=== PATIENT | male | born 1935 | race Caucasian/White ===

== ENCOUNTER 2016-06-17 10:32 | Outpatient (RCR) | payer MEDICAID ==
[~2016-06-17 10:32] MED LIST: AC325T PO; ACDPT; ACET-2303; ACET325T49 PO; ACID1TAB5 PO; AMLO5TAB2 PO; ANTIBIOTIC; ASP81TEC; ASP81TEC PO; ASPI-999 PO; ATEN25TA PO; ATN25T; ATOR10TA PO; BENZ1LOZ61 PO; C250T PO; CEFU500T PO; CEFU500T5; CEPH-38 PO; CLOP75TA28 PO; CLOT15CR4 TP; CLTR1C90; CYAN100053 IM; CYCL10TA9; DCS100C; DCS100C PO; DICY20TA57 PO; DIPH25TA82 PO; ESCT10T PO; FENO135C PO; FNST5T PO; FURO40TA4 PO; HYDR-3583 PO; HYDR-3714 PO; HYDR-3812 PO; HYDR1CAP2; HYDR30CR69 RC; KCL10CCR PO; LACT20SO2 PO; LAXATIVE; LEVO500T2 PO; LISI2.5T PO; LNS30CCR; LTRS15C TOP; MAG30ORA2 PO; MAGN400O7 PO; METO-333 PO; METO10TA3; METR500T PO; MPR22TI; MTF500T PO; MULT-608 PO; NAPH15DR51 OU; NAPR375T2; NITR0.4T SL; OMEG1CAP74 PO; OMEP-10 PO; OMEP40CA36 PO; PANT40SU PO; PHEN118S12 PO; PHEN26CR RC; PNT40TEC; POLY17PO23 PO; POTA20LI PO; POTA20TA15 PO; PRD10T PO; PROP1TAB2; PROP1TAB77; RNT150T PO; SCR1T PO; SCR1T1 PO; SHAR1SUP RC; SIMV20TA3 PO; SMV20T; SNN187T PO; SULF1TAB23; SULF1TAB23 PO; SULF1TAB38 PO; SULF1TAB7; TMSL.4C PO; TR1O15; TRAM50TA2 PO; TRZ50T PO; ZLP10T; [UNRECOGNIZED DRUG - OTHER]; [UNRECOGNIZED DRUG - OTHER]; [UNRECOGNIZED DRUG - OTHER]; [UNRECOGNIZED DRUG - OTHER] OU
== END 2016-09-15 | disposition home or self-care (01) ==
LOC: CARD 10:32
PROVIDERS: ATTEND Internal Medicine Interventional Cardiology
DX: R06.00 Dyspnea, unspecified (principal); I49.3 Ventricular premature depolarization
CPT/HCPCS: 93225; 93226

== ENCOUNTER → 2016-08-06 | Outpatient (CLI) | payer MEDICAID ==
[~2016-08-06] VITALS: Ht 152.4 cm; Wt 73.5 kg
[~2016-08-06] MED LIST changes: +REGADENOSON 0.4 MG/5 ML SYR (LEXISCAN) IV ONE
[2016-08-06] MEDS: CATHETER FLUSH 10 ML SYR IV PRN ×2 (08:06→09:40)
[2016-08-06 09:37] VITALS: BP 129/59
--- NOTE | 2016-08-07 09:39 | STRESS TEST ---
PROCEDURE PHYSICIAN: GRANT BANDA DATE OF PROCEDURE: 08/06/2016 RESTING AND POST REGADENOSON TECHNETIUM 99M TETROFOSMIN SPECT CT IMAGING: ORDERING PHYSICIAN: Dr. Banda. PRIMARY PHYSICIAN: Dr. Manriquez CLINICAL DIAGNOSIS: 1. Coronary artery disease. 2. Shortness of breath. Baseline images were carried out after injection of 10.78 mCi technetium 99m tetrofosmin. This was followed by 0.4 mg of regadenoson and 30.6 mCi of technetium 99m tetrofosmin for stress images. The electrocardiogram showed sinus rhythm with first degree AV block with frequent premature atrial contractions and premature ventricular contractions. The electrocardiogram did not change significantly with regadenoson infusion. Review of images at rest and following stress indicates a small to moderate anteroapical perfusion defect which is predominantly transient. Gated images show normal global left ventricular systolic function with normal regional wall motion. Left ventricular ejection fraction is calculated to be 62%. Left ventricular end diastolic function is 64 mL. TID is absent (0.97). CONCLUSIONS: 1. This study suggests a small to moderate amount of anteroapical ischemia. 2. Normal global left ventricular systolic function with an ejection fraction of 62%. 3. Normal regional wall motion. 4. The electrocardiogram is indicative of sinus node dysfunction. Job ID: [id number] Dictated Date: 08/06/2016 16:42:38 Veterinary Microbiologist Date: 08/07/2016 09:31:40 / john
== END ==
LOC: CARD 07:49
PROVIDERS: ATTEND Internal Medicine Cardiovascular Disease
DX: I25.10 Atherosclerotic heart disease of native coronary artery without angina pectoris (principal); R07.89 Other chest pain; R06.02 Shortness of breath; I49.9 Cardiac arrhythmia, unspecified; I73.89 Other specified peripheral vascular diseases; I65.23 Occlusion and stenosis of bilateral carotid arteries
CPT/HCPCS: 78452; 93017

== ENCOUNTER → 2016-08-08 | Outpatient (CLI) | payer MEDICAID ==
[~2016-08-08] MED LIST changes: -REGADENOSON 0.4 MG/5 ML SYR (LEXISCAN) IV ONE
--- NOTE | 2016-08-08 16:11 | Diagnostic Imaging Report ---
PROCEDURE: US Carotid Duplex Bilateral. TECHNIQUE: Multiple real-time grayscale images were obtained over the carotid arteries in various projections bilaterally. Additional duplex Doppler and color Doppler images were also obtained. INDICATION: Atherosclerotic disease. FINDINGS: The bilateral common, internal, and external carotid peak systolic velocities were normal. The ICA/CCA percent ratios are normal. There is normal color laminar Doppler flow throughout both common and internal carotids. The vertebral flow in the antegrade direction bilaterally. Minimal intimal thickening and scattered plaques did not form substantial stenoses. IMPRESSION: Minimal degree of atherosclerotic plaque formed no hemodynamically significant stenosis and resulted in no appreciable branch occlusion. Dictated by: Dictated on workstation # [id number]
== END ==
LOC: RAD 11:19
PROVIDERS: ATTEND Internal Medicine Cardiovascular Disease
DX: I25.10 Atherosclerotic heart disease of native coronary artery without angina pectoris (principal); R06.02 Shortness of breath; R07.89 Other chest pain; I49.9 Cardiac arrhythmia, unspecified; I73.89 Other specified peripheral vascular diseases; I65.23 Occlusion and stenosis of bilateral carotid arteries
CPT/HCPCS: 93880

== ENCOUNTER 2016-12-29 02:55 | Observation (INO) | payer MEDICAID ==
[~2016-12-29] VITALS: Ht 152.4 cm; Wt 69.0 kg
[2016-12-29] MEDS ORDERED: ASPIRIN 81 MG CHEW (CHILDREN'S ASA) PO ONE (03:15)
[2016-12-29] MEDS ORDERED: morphine INJ 10 MG/ML 1ML (SYR OR VIAL) IVP STA (03:25)
[2016-12-29 03:27] LABS: BASOPHILS % (AUTO) 1 % (0-10); EOSINOPHILS # (AUTO) 0.3 10^3/uL (0.0-0.3); EOSINOPHILS % (AUTO) 4 % (0-10); LYMPHOCYTES # (AUTO) 1.7 X 10^3 (1.0-4.0); LYMPHOCYTES % (AUTO) 22 % (12-44); MEAN CORPUSCULAR HEMOGLOBIN 31 PG (25-34); MEAN CORPUSCULAR HGB CONC 33 G/DL (32-36); MEAN CORPUSCULAR VOLUME 94 FL (80-99); MEAN PLATELET VOLUME 10.7 FL (7.4-10.4); MONOCYTES # (AUTO) 1.1 X 10^3 (0.0-1.0); MONOCYTES % (AUTO) 14 % (0-12); NEUTROPHILS # (AUTO) 4.6 X 10^3 (1.8-7.8); NEUTROPHILS % (AUTO) 59 % (42-75); PLATELET COUNT 189 10^3/uL (130-400); RED BLOOD COUNT 3.86 10^6/uL (4.35-5.85); WHITE BLOOD COUNT 7.7 10^3/uL (4.3-11.0)
--- NOTE | 2016-12-29 03:27 | ED Chest Pain ---
General Chief Complaint: Chest Pain Stated Complaint: SOA CHEST PAIN Nursing Triage Note: PT TO ED 7 PER EMS FOR C/O CP, SOB ONSET THIS AM. PT REPORTS PAIN WOKE HIM FROM SLEEP THIS AM. NO OTHER C/O VOICED Nursing Sepsis Screen: No Definite Risk Source: patient, EMS Exam Limitations: no limitations History of Present Illness Time seen by provider: 03:15 Initial Comments Here with report of left-sided chest pain that radiates to his back that he reports is aching and moderate in intensity. This woke him up from sleep approximately 45 minutes ago. EMS was summoned and they did give nitroglycerin. This did lower his blood pressure but did not resolve the pain. Denies nausea, vomiting or sweating. She does have cerebral palsy. He has had 2 previous heart attacks. Timing/Duration: 1 hour Severity/Quality: moderate Location: central Radiation: back Activities at Onset: none Prior CP/Workup: cardiac cath, echocardiography, heart attack, stress test ASA po MACHINE TURNER: No NTG SL MACHINE TURNER: Yes Associated Symptoms: back pain, No diaphoresis, No fever/chills, No shortness of breath, No weakness Allergies and Home Medications Allergies Coded Allergies: Penicillins (Verified Allergy, Unknown, 12/11/05) sulfamethoxazole (Unverified Allergy, Unknown, 03/23/15) trimethoprim (Unverified Allergy, Unknown, 03/23/15) Home Medications Acetaminophen 325 Mg Tab, 650 MG PO Q4H PRN for MILD PAIN, (Reported) Aspirin 81 Mg Tab.chew, 81 MG PO DAILY, #90 Ref 3 Prescribed by: GWENDOLYN ROMERO on 03/31/15840 Atorvastatin Calcium 10 Mg Tablet, 10 MG PO HS, (Reported) Benzocaine/Menthol 1 Each Lozenge, 1 DONY PO EVERY 3 HOURS PRN for COUGH, ( Reported) Cefuroxime Axetil 500 Mg Tablet, 500 MG PO BID for 5 Days, (Reported) 5 DAY THERAPY START DATE 03-28-15 Clopidogrel Bisulfate 75 Mg Tablet, 75 MG PO DAILY, #90 Ref 3 Prescribed by: GWENDOLYN ROMERO on 03/31/1541 Clotrimazole/Betamethasone Dip 15 Gm Cream..g., TP TID, (Reported) Cyanocobalamin 1,000 Mcg/Ml Vial, 1,000 MCG IM 1ST OF MONTH, (Reported) Docusate Sodium 100 Mg Capsule, 100 MG PO BID, (Reported) Fenofibric Acid (Choline) 135 Mg Capsule.dr, 135 MG PO HS, (Reported) Finasteride 5 Mg Tab, 5 MG PO DAILY, (Reported) Furosemide 40 Mg Tablet, 40 MG PO AM & NOON, (Reported) Hydrocodone/Acetaminophen 1 Each Tablet, 1 TAB PO Q8H PRN for MODERATE PAIN, ( Reported) Hydrocortisone 30 Gm Cream.gm., 1 APPLIC RC DAILY PRN for CONSTIPATION, ( Reported) Levofloxacin 500 Mg Tablet, 500 MG PO DAILY for 5 Days, (Reported) 5 DAY THERAPY START DATE 03-28-15 Lisinopril 2.5 Mg Tablet, 2.5 MG PO DAILY, #90 Ref 3 Prescribed by: GWENDOLYN ROMERO on 03/31/1541 Mag Hydrox/Al Hydrox/Simeth 30 Ml Oral.susp, 30 ML PO EVERY 1 HOUR PRN for INDIGESTION, (Reported) Magnesium Hydroxide 30 Ml Oral.susp, 30 ML PO DAILY PRN for CONSTIPATION, ( Reported) Metformin Hcl 500 Mg Tablet, 1,000 MG PO BID, (Reported) TAKES 2 (500MG) TABLETS Metoprolol Tartrate 25 Mg Tablet, 12.5 MG PO BID, #90 Ref 3 Prescribed by: GWENDOLYN ROMERO on 03/31/1541 Naphazoline HCl/Pheniramine 15 Ml Drops, 1 DROP OU HS, (Reported) Nitroglycerin 0.4 Mg Tab.subl, 0.4 MG SL UD PRN for CHEST PAIN, (Reported) Davis-3/Dha/Epa/Fish Oil 1,000 Mg Capsule, 1,000 MG PO BID, (Reported) Pantoprazole Sodium 40 Mg Granpkt.dr, 40 MG PO DAILY, #90 Ref 3 Prescribed by: GWENDOLYN ROMERO on 03/31/1542 Phenyleph/Pramoxin/Glycr/W.pet 26 Gm Cream..g., 1 MG RC HS, (Reported) Potassium Chloride 20 Meq/15 Ml Liquid, 15 ML PO DAILY, (Reported) MIX IN 8OZ WATER Prednisone 10 Mg Tab, 10 MG PO DAILY, (Reported) START DATE 03-26-15 END DATE 04-10-15 Senna 8.6 Mg Tab, 8.6 MG PO BID, (Reported) Shark Liver Oil/[place] Butter 1 Each Supp.rect, 1 SUPP.RECT RC Q8H PRN for HEMORRHOIDS, (Reported) Tamsulosin Hcl 0.4 Mg Cap.er.24h, 0.4 MG PO HS, (Reported) Review of Systems Constitutional: see HPI, No chills, No fever EENTM: No Symptoms Reported Respiratory: No Symptoms Reported Cardiovascular: See HPI, Chest Pain, Denies Edema, Irregular Heart Rate Gastrointestinal: Denies Abdominal Pain, Denies Nausea, Denies Vomiting Genitourinary: No Symptoms Reported Musculoskeletal: no symptoms reported All Other Systems Reviewed Negative Unless Noted: Yes Past Cvhywdq-Aqlzli-Epyrcy Hx Patient Social History Alcohol Use: Denies Use Recreational Drug Use: No Smoking Status: Never a Smoker Former Smoker/When Quit: Jun 30, 1971 Recent Foreign Travel: No Contact w/Someone Who Travel: No Recent Infectious Disease Expo: No Recent Hopitalizations: No Immunizations Up To Date Tetanus Booster (TDap): Unknown PED Vaccines UTD: No Date of Pneumonia Vaccine: Oct 03, 2014 Seasonal Allergies Seasonal Allergies: No Surgeries HX Surgeries: Yes (KNEES, LEGS, FEET AND ABDOMINAL SURGERY) Surgeries: Orthopedic Respiratory Hx Respiratory Disorders: Yes (SHORTNESS OF BREATH AT TIMES, SLEEP APNEA- WEARS C-PAP) Respiratory Disorders: Sleep Apnea Cardiovascular Hx Cardiac Disorders: Yes Cardiac Disorders: Chronic Edema/Swelling, Coronary Artery Disease, Heart Attack, High Cholesterol, Hypertension Neurological Hx Neurological Disorders: Yes Neurological Disorders: Cerebral Palsy Reproductive System Hx Reproductive Disorders: No Genitourinary Hx Genitourinary Disorders: Yes Genitourinary Disorders: Benign Prostatic Hyperpl, Bladder Infection Gastrointestinal Hx Gastrointestinal Disorders: Yes (COLON RESECTION) Gastrointestinal Disorders: Gastroesophageal Reflux, Chronic Constipation, Hemorrhoids Musculoskeletal Hx Musculoskeletal Disorders: Yes (CEREBRAL PALSY, GENERALIZED PAIN ) Musculoskeletal Disorders: Contracture Endocrine Hx Endocrine Disorders: Yes Endocrine Disorders: Diabetes, Non-Insulin dep HEENT HX ENT Disorders: Yes Loss of Vision: Denies Hearing Impairment: Hard of Hearing Cancer Hx Cancer: Yes Cancer: Colon Psychosocial Hx Psychiatric Problems: Yes Behavioral Health Disorders: Sleep Difficulties, Depression Integumentary HX Skin/Integumentary Disorder: No Blood Transfusions Hx Blood Disorders: No Reviewed Nursing Assessment Reviewed/Agree w Nursing PMH: Yes Family Medical History Significant Family History: No Pertinent Family Hx Family Medial History: Patient reports no known family medical history. Physical Exam Vital Signs Vital Sign - Last 12Hours 12/29/16 02:56 Temp 98.2 Pulse 55 Resp 20 B/P (MAP) 88/48 Pulse Ox 92 Capillary Refill : Less Than 3 Seconds General Appearance: No Apparent Distress, WD/WN HEENT: PERRL/EOMI, Pharynx Normal Neck: Non Tender, Supple Respiratory: Lungs Clear, Normal Breath Sounds Cardiovascular: No Murmur, Irregularly Irregular Gastrointestinal: Non Tender, Soft Extremity: Other (contractures bilateral lower extremities chronic. No obvious swelling.) Neurologic/Psychiatric: Alert, Oriented x3 Skin: Normal Color, Warm/Dry Progress/Results/Core Measures Results/Orders Lab Results Laboratory Tests Test 12/29/16 03:16 Range/Units White Blood Count 7.7 4.3-11.0 10^3/uL Red Blood Count 3.86 L 4.35-5.85 10^6/uL Hemoglobin 11.9 L 13.3-17.7 G/DL Hematocrit 36 L 40-54 % Mean Corpuscular Volume 94 80-99 FL Mean Corpuscular Hemoglobin 31 25-34 PG Mean Corpuscular Hemoglobin Concent 33 32-36 G/DL Red Cell Distribution Width 14.0 10.0-14.5 % Platelet Count 189 130-400 10^3/uL Mean Platelet Volume 10.7 H 7.4-10.4 FL Neutrophils (%) (Auto) 59 42-75 % Lymphocytes (%) (Auto) 22 12-44 % Monocytes (%) (Auto) 14 H 0-12 % Eosinophils (%) (Auto) 4 0-10 % Basophils (%) (Auto) 1 0-10 % Neutrophils # (Auto) 4.6 1.8-7.8 X 10^3 Lymphocytes # (Auto) 1.7 1.0-4.0 X 10^3 Monocytes # (Auto) 1.1 H 0.0-1.0 X 10^3 Eosinophils # (Auto) 0.3 0.0-0.3 10^3/uL Basophils # (Auto) 0.0 0.0-0.1 10^3/uL Prothrombin Time 12.8 12.2-14.7 SEC INR Comment 1.0 0.8-1.4 Activated Partial Thromboplast Time 31 24-35 SEC Sodium Level 140 135-145 MMOL/L Potassium Level 4.4 3.6-5.0 MMOL/L Chloride Level 107 98-107 MMOL/L Carbon Dioxide Level 22 21-32 MMOL/L Anion Gap 11 5-14 MMOL/L Blood Urea Nitrogen 30 H 7-18 MG/DL Creatinine 0.84 0.60-1.30 MG/DL Estimat Glomerular Filtration Rate > 60 BUN/Creatinine Ratio 36 Glucose Level 123 H 70-105 MG/DL Calcium Level 9.6 8.5-10.1 MG/DL Magnesium Level 2.4 1.8-2.4 MG/DL Total Bilirubin 0.3 0.1-1.0 MG/DL Aspartate Amino Transf (AST/SGOT) 26 5-34 U/L Alanine Aminotransferase (ALT/SGPT) 20 0-55 U/L Alkaline Phosphatase 35 L 40-136 U/L Myoglobin 41.0 10.0-92.0 NG/ML Troponin I < 0.30 <0.30 NG/ML B-Type Natriuretic Peptide 247.8 H <100.0 PG/ML Total Protein 6.9 6.4-8.2 GM/DL Albumin 3.7 3.2-4.5 GM/DL My Orders Orders - JELENA BROWN MD Cbc With Automated Diff (12/29/16 03:05) Magnesium (12/29/16 03:05) Chest 1 View, Ap/Pa Only (12/29/16 03:05) Ekg Tracing (12/29/16 03:05) Cardiac Profile 1 (12/29/16 03:05) Comprehensive Metabolic Panel (12/29/16 03:05) Myoglobin Serum (12/29/16 03:05) Protime With Inr (12/29/16 03:05) Partial Thromboplastin Time (12/29/16 03:05) O2 (12/29/16 03:05) Monitor-Rhythm Ecg Trace Only (12/29/16 03:05) Lipid Panel (12/30/16 06:00) Aspirin Chewable Tablet (Baby Aspirin Ch (12/29/16 03:15) Saline Lock/Iv-Start (12/29/16 03:05) BNP (12/29/16 03:05) Morphine Injection (Morphine Injection (12/29/16 03:25) Lidocaine 2% Viscous 15 Ml (Xylocaine Vi (12/29/16 04:30) Antacid Suspension (Mylanta Suspension (12/29/16 04:30) Medications Given in ED Current Medications Medications Dose Ordered Sig/Carlos Route Start Time Stop Time Status Last Admin Dose Admin Aspirin 324 mg ONCE ONCE PO 12/29/16 03:15 12/29/16 03:16 DC 12/29/16 03:29 324 MG Vital Signs/I&O Vital Sign - Last 12Hours 12/29/16 12/29/16 12/29/16 02:56 02:56 02:56 Temp 98.2 Pulse 55 Resp 20 B/P (MAP) 88/48 Pulse Ox 92 O2 Delivery Nasal Cannula Nasal Cannula Nasal Cannula O2 Flow Rate 3.00 3.0 Blood Pressure Mean: 61 Progress Note : Progress Note Seen and evaluated. IV by EMS. Labs, aspirin, EKG and chest x-ray ordered. Morphine 2 mg IV. Monitor patient. 0413: Discussed case with Dr. Tello, on- call for Dr. Sandoval. Due to patient's significant medical history, patient will be admitted observation for further rule out of his chest pain. GI cocktail given. Pain is improved after morphine. Admit, observation status. Patient agrees with plan. ECG Initial ECG Impression Date: Dec 29, 2016 Initial ECG Impression Time: 03:05 Initial ECG Rate: 71 Initial ECG Rhythm: A Fib/Flutter Comment Atrial fibrillation with ventricular trigeminy. Nonspecific intraventricular conduction delay. Strain right axis deviation. Similar to previous of . No evidence of ST elevation ME. Interpreted by me. Diagnostic Imaging Diagonstic Imaging: Xray Plain Films/CT/US/NM/MRI: chest Comments Rotated with chronic lung disease. Similar to previous. Departure Communication Time/Spoke to Admitting Phy: 04:13 Impression Impression: Primary Impression: Chest pain Qualified Codes: R07.9 - Chest pain, unspecified Disposition: 09 ADMITTED INPATIENT Condition: Stable Decision to Admit Reason: Admit from ER (General) Decision to Admit/Date: Dec 29, 2016 Time/Decision to Admit Time: 04:13 Departure-Patient Inst. Referrals: MELANIE SANDOVAL DO (PCP/Family) Primary Care Physician JELENA BROWN MD Dec 29, 2016 03:27
[2016-12-29 03:44] LABS: ALANINE AMINOTRANSFERASE 20 U/L (0-55); ALBUMIN 3.7 GM/DL (3.2-4.5); ANION GAP 11 MMOL/L (5-14); ASPARTATE AMINO TRANSFERASE 26 U/L (5-34); BILIRUBIN,TOTAL 0.3 MG/DL (0.1-1.0); BLOOD UREA NITROGEN 30 MG/DL (7-18); BUN/CREATININE RATIO 36; CALCIUM 9.6 MG/DL (8.5-10.1); CARBON DIOXIDE 22 MMOL/L (21-32); CHLORIDE 107 MMOL/L (98-107); CREATININE SERUM 0.84 MG/DL (0.60-1.30); GFR ESTIMATED > 60; GLUCOSE 123 MG/DL (70-105); MAGNESIUM 2.4 MG/DL (1.8-2.4); POTASSIUM 4.4 MMOL/L (3.6-5.0); SODIUM 140 MMOL/L (135-145); TOTAL PROTEIN 6.9 GM/DL (6.4-8.2)
[2016-12-29 03:46] LABS: PROTHROMBIN TIME PATIENT 12.8 SEC (12.2-14.7)
[2016-12-29] MEDS ORDERED: LIDOCAINE 2% VISCOUS 15 ML UDC PO ONE (04:30)
[2016-12-29] MEDS ORDERED: ANTACID SUSP 30 ML UDC (MYLANTA) PO ONE (04:30)
[2016-12-29 05:52] VITALS: BP 109/53
[2016-12-29] MEDS ORDERED: NS IV 1000 ML 1,000 ML ONE (06:24)
[2016-12-29 06:34] LABS: BASOPHILS % (AUTO) 1 % (0-10); EOSINOPHILS # (AUTO) 0.2 10^3/uL (0.0-0.3); EOSINOPHILS % (AUTO) 3 % (0-10); LYMPHOCYTES # (AUTO) 1.4 X 10^3 (1.0-4.0); LYMPHOCYTES % (AUTO) 18 % (12-44); MEAN CORPUSCULAR HEMOGLOBIN 31 PG (25-34); MEAN CORPUSCULAR HGB CONC 33 G/DL (32-36); MEAN CORPUSCULAR VOLUME 94 FL (80-99); MEAN PLATELET VOLUME 10.7 FL (7.4-10.4); MONOCYTES # (AUTO) 0.8 X 10^3 (0.0-1.0); MONOCYTES % (AUTO) 10 % (0-12); NEUTROPHILS # (AUTO) 5.4 X 10^3 (1.8-7.8); NEUTROPHILS % (AUTO) 69 % (42-75); PLATELET COUNT 173 10^3/uL (130-400); WHITE BLOOD COUNT 7.9 10^3/uL (4.3-11.0)
[2016-12-29 06:57] LABS: ALANINE AMINOTRANSFERASE 20 U/L (0-55); ALBUMIN 3.8 GM/DL (3.2-4.5); ANION GAP 10 MMOL/L (5-14); ASPARTATE AMINO TRANSFERASE 26 U/L (5-34); BILIRUBIN,TOTAL 0.3 MG/DL (0.1-1.0); BLOOD UREA NITROGEN 29 MG/DL (7-18); BUN/CREATININE RATIO 34; CALCIUM 9.7 MG/DL (8.5-10.1); CARBON DIOXIDE 22 MMOL/L (21-32); CHLORIDE 108 MMOL/L (98-107); CREATININE SERUM 0.86 MG/DL (0.60-1.30); GFR ESTIMATED > 60; GLUCOSE 130 MG/DL (70-105); POTASSIUM 4.4 MMOL/L (3.6-5.0); SODIUM 140 MMOL/L (135-145)
[2016-12-29] MEDS ORDERED: NS IV 1000 ML 1,000 ML IV SCH (07:30)
--- NOTE | 2016-12-29 07:57 | Diagnostic Imaging Report ---
Portable chest is compared with a prior study from February 09, 2016. INDICATION: Chest pain. FINDINGS: Patient is rotated on this examination. There is also a dextroscoliotic curvature of the thoracic spine. This accentuates cardiac borders. There is no overt failure. There are chronic interstitial changes present within the lungs which are not appreciably changed. No new region of consolidation is evident. Costophrenic angles are not well delineated, but this is a stable finding. There is no pneumothorax. IMPRESSION: There has not been evidence of significant interval change when compared to the prior examination. Chronic interstitial changes are present within the lungs. There are no definitive findings of a new superimposed acute cardiopulmonary process. Dictated by: Dictated on workstation # [id number]
[2016-12-29 08:00] VITALS: BP 102/61
[2016-12-29] MEDS ORDERED: DEXT1DRO7 OP (08:35)
[2016-12-29] MEDS ORDERED: POTA10CA68 PO (08:35)
[2016-12-29] MEDS ORDERED: METO50TA2 PO (08:35)
[2016-12-29] MEDS ORDERED: HYDR-3812 PO (08:35)
[2016-12-29] MEDS ORDERED: MULT-178 PO (08:35)
[2016-12-29] MEDS ORDERED: FAMO20TA3 PO (08:35)
[2016-12-29] MEDS ORDERED: METO-333 PO (08:35)
--- NOTE | 2016-12-29 11:53 | History & Physical ---
History of Present Illness History of Present Illness Reason for visit/HPI 81 yo M admitted for observation- he noted around 150am chest discomfort- left side of his chest- that went down into his stomach and back up. I was contacted by nursing staff of [facility] as pt requested to be seen at the ER. EKG did not show ST changes and initial troponin was negative. Pt was given morphine, viscous lidocaine, asa and his symptoms went away- He also got mylanta that he thinks helped as well. Pt has history of stents with last STEMI was 03/30/2015- due to stent thrombosis - Dr. Elkins was successful with balloon angioplasty. Pt is a cardiology pt of Dr. Banda. Pt reports he is ready to go back to [facility] as he is chest pain free and denies any other issues. Date of Admission Dec 29, 2016 at 04:20 Time Seen by Provider: 09:20 I consulted on this patient on 12/29/16 11:48 Attending Physician Casimiro Manriquez DO Admitting Physician Kostas Hadley MD Consult Dr. Ferrera Allergies and Home Medications Allergies Coded Allergies: Penicillins (Verified Allergy, Unknown, 12/11/05) sulfamethoxazole (Unverified Allergy, Unknown, 03/23/15) trimethoprim (Unverified Allergy, Unknown, 03/23/15) Home Medications Aspirin 81 Mg Tab.chew, 81 MG PO DAILY, #90 Ref 3 Prescribed by: GWENDOLYN ROMERO on 03/31/15 0841 Atorvastatin Calcium 10 Mg Tablet, 10 MG PO HS, (Reported) Clopidogrel Bisulfate 75 Mg Tablet, 75 MG PO DAILY, #90 Ref 3 Prescribed by: GWENDOLYN ROMERO on 03/31/15 0841 Cyanocobalamin 1,000 Mcg/Ml Vial, 1,000 MCG IM 1ST OF MONTH, (Reported) Dextran 70/Hypromellose 1 Each Droperette, 1 EACH OP DAILY PRN for DRY EYES for 30 Days Prescribed by: ERNESTO MACIEL on 12/29/16 0835 Docusate Sodium 100 Mg Capsule, 100 MG PO BID, (Reported) Famotidine 20 Mg Tablet, 20 MG PO BID for 30 Days Prescribed by: ERNESTO MACIEL on 12/29/16 0835 Fenofibric Acid (Choline) 135 Mg Capsule., 135 MG PO HS, (Reported) Finasteride 5 Mg Tab, 5 MG PO DAILY, (Reported) Furosemide 40 Mg Tablet, 40 MG PO AM & NOON, (Reported) Hydrocodone/Acetaminophen 1 Each Tablet, 1 EACH PO DAILY PRN for PAIN-MILD TO MODERATE for 30 Days Prescribed by: ERNESTO MACIEL on 12/29/16 0835 Lisinopril 2.5 Mg Tablet, 2.5 MG PO DAILY, #90 Ref 3 Prescribed by: GWENDOLYN ROMERO on 03/31/15 0841 Metformin Hcl 500 Mg Tablet, 1,000 MG PO BID, (Reported) TAKES 2 (500MG) TABLETS Metoprolol Tartrate 25 Mg Tablet, 25 MG PO HS for 30 Days Prescribed by: ERNESTO MACIEL on 12/29/16 0835 Metoprolol Tartrate 50 Mg Tablet, 50 MG PO DAILY for 30 Days Prescribed by: ERNESTO MACIEL on 12/29/16 0835 Multivitamin 1 Each Tablet, 1 EACH PO DAILY for 30 Days Prescribed by: ERNESTO MACIEL on 12/29/16 0835 Nitroglycerin 0.4 Mg Tab.subl, 0.4 MG SL UD PRN for CHEST PAIN, (Reported) Tower-3/Dha/Epa/Fish Oil 1,000 Mg Capsule, 1,000 MG PO BID, (Reported) Phenyleph/Pramoxin/Glycr/W.pet 26 Gm Cream..g., 1 MG RC HS, (Reported) Potassium Chloride 10 Meq Capsule.er, 10 MEQ PO BID for 30 Days Prescribed by: ERNESTO MACIEL on 12/29/16 0835 Senna 8.6 Mg Tab, 8.6 MG PO BID, (Reported) Shark Liver Oil/[place] Butter 1 Each Supp.rect, 1 SUPP.RECT RC Q8H PRN for HEMORRHOIDS, (Reported) Tamsulosin Hcl 0.4 Mg Cap.er.24h, 0.4 MG PO HS, (Reported) Past Hxwmcvr-Oyncpl-Kkciqk Hx Patient Social History Alcohol Use: Denies Use Recreational Drug Use: No Smoking Status: Never a Smoker Former smoker/When Quit: Jun 30, 1971 Physical Abuse Screen: No Sexual Abuse: No Recent Foreign Travel: No Contact w/other who traveled: No Recent Hopitalizations: No Recent Infectious Disease Expo: No Immunizations Up To Date Tetanus Booster (TDap): Unknown Date of Pneumonia Vaccine: Sep 29, 2014 Seasonal Allergies Seasonal Allergies: No Surgeries HX Surgeries: Yes (KNEES, LEGS, FEET AND ABDOMINAL SURGERY) Surgeries: Orthopedic Respiratory Hx Respiratory Disorders: Yes (SHORTNESS OF BREATH AT TIMES, SLEEP APNEA- WEARS C-PAP) Cardiovascular Hx Cardiovascular Disorders: Yes Cardiac Disorders: Chronic Edema/Swelling, Coronary Artery Disease, Heart Attack, High Cholesterol, Hypertension Neurological Hx Neurological Disorders: Yes Neurological Disorders: Cerebral Palsy Reproductive System Hx Reproductive Disorders: No Genitourinary Hx Genitourinary Disorders: Yes Genitourinary Disorders: Benign Prostatic Hyperpl, Bladder Infection Gastrointestinal Hx Gastrointestinal Disorders: Yes (COLON RESECTION) Gastrointestinal Disorders: Gastroesophageal Reflux, Chronic Constipation, Hemorrhoids Musculoskeletal Hx Musculoskeletal Disorders: Yes (CEREBRAL PALSY, GENERALIZED PAIN ) Musculoskeletal Disorders: Contracture Endocrine Hx Endocrine Disorders: Yes Endocrine Disorders: Diabetes, Non-Insulin dep HEENT HX ENT Disorders: Yes Loss of Vision: Denies Hearing Impairment: Hard of Hearing Cancer Hx Cancer: Yes Cancer: Colon Psychosocial Hx Psychiatric Problems: Yes Behavioral Health Disorders: Sleep Difficulties, Anxiety, Depression Integumentary HX Skin/Integumentary Disorder: No Blood Transfusions Hx Blood Disorders: No Adverse Reaction to a Blood Tr: No Reviewed Nursing Assessment Reviewed/Agree w Nursing PMH: Yes Family Medical History Significant Family History: No Pertinent Family Hx Family Hx: Patient reports no known family medical history. Review of Systems Review of Systems Date Seen by Provider: Dec 29, 2016 Time Seen by Provider: 09:20 General: No Chills, No Night Sweats HEENT: No Head Aches Pulmonary: No Dyspnea, No Cough Cardiovascular: No: Chest Pain, Palpitations Gastrointestinal: No: Abdominal Pain, Nausea, Vomiting Genitourinary: No Dysuria, No Frequency Musculoskeletal: No: neck pain, shoulder pain Neurological: Weakness All Other Systems Reviewed All Other Systems Reviewed: Yes Physical Exam Vital Signs Vital Sign - Last 12Hours 12/29/16 02:56 Temp 98.2 Pulse 55 Resp 20 B/P (MAP) 88/48 Pulse Ox 92 Capillary Refill : Less Than 3 SecondsLess Than 3 Seconds General Appearance: No Apparent Distress HEENT: PERRL/EOMI Neck: Non Tender, Supple Respiratory: Chest Non Tender, Lungs Clear, Normal Breath Sounds, No Accessory Muscle Use Cardiovascular: Regular Rate, Rhythm, No Edema Gastrointestinal: Normal Bowel Sounds, Non Tender, Soft Rectal: Deferred Back: No CVA Tenderness Extremity: Other (contractures of legs.) Neurologic/Psychiatric: Alert, Oriented x3 Skin: Warm/Dry Assessment/Plan Assessment/Plan Assessment/Plan 81 yo M Chest discomfort- troponin negative x2, EKG no changes. -resolved CAD- last STEMI 03/30/15 due to stent thrombosis- Prototype Engineer Manager is Dr. Banda. continue plavix PAD- monitor Cerebral palsy - with LE contractures HTN- monitor, continue home meds GERD- on h2 matt Diabetes- controlled h/o adenocarcinoma of colon- s/p previous resection- no new issues. Dispo: Dr. Ferrera will see pt today- repeat troponin negative- chest pain is resolved. Recommend follow up with cardiology in next 1-2 weeks. Plan to discharge back to [facility] today pending Dr. Ferrera eval. Problems: Clinical Quality Measures AMI/AHF: ASA po Prior to arrival: No DVT/VTE Risk/Contraindication: Risk Factor Score Per Nursin RFS Level Per Nursing on Admit: 4+=Very High KOSTAS HADLEY MD Dec 29, 2016 11:53
[2016-12-29 12:00] VITALS: BP 122/60
[2016-12-29] MEDS ORDERED: HYDROcodone/APAP 5 MG/325 MG (LORTAB) TAB PO PRN (12:15)
[2016-12-29] MEDS ORDERED: NITROGLYCERIN SUBLINGUAL 0.4 MG TAB (NITROSTAT) SL PRN (12:15)
[2016-12-29] MEDS ORDERED: ASPIRIN 81 MG CHEW (CHILDREN'S ASA) PO SCH (12:26)
[2016-12-29] MEDS ORDERED: CLOPIDOGREL 75 MG (PLAVIX) TABLET PO SCH (12:27)
[2016-12-29] MEDS ORDERED: lisINopril 5 MG (PRINIVIL) TABLET PO SCH (12:28)
[2016-12-29] MEDS ORDERED: FINASTERIDE (PROSCAR) 5 MG TAB PO SCH (12:28)
[2016-12-29] MEDS ORDERED: meTOprolol TARTRATE 50 MG (LOPRESSOR) TAB PO SCH (12:29)
[2016-12-29] MEDS ORDERED: DOCUSATE SODIUM 100 MG (COLACE) CAP PO SCH (12:29)
[2016-12-29] MEDS ORDERED: FAMOTIDINE 20 MG (PEPCID) TABLET PO SCH (12:30)
[2016-12-29] MEDS ORDERED: metFORMIN 500 MG (GLUCOPHAGE) TAB PO SCH (12:31)
[2016-12-29] MEDS ORDERED: FUROSEMIDE 40 MG (LASIX) TAB PO SCH (12:31)
[2016-12-29] MEDS ORDERED: SENNOSIDES 8.6 MG (SENOKOT) TAB PO SCH (12:32)
--- NOTE | 2016-12-29 14:16 | Discharge Inst-Skilled Nursing ---
Discharge Inst-Skilled NF Chief Complaint chest pain Patient Instructions Patient Problems: chest pain - resolved Consult/Follow Up/Orders Follow Up Appt.: Dr. Banda in 1-2 weeks Skilled NF Admit to: [facility] Certification (SNF) I certify that SNF services are required to be given on an inpatient basis because of the above named patient's need for [facility] care on a continuing basis for the conditions(s) for which he/she was receiving inpatient hospital services prior to his/her transfer to the SNF. Snf Facility Order: Nursing Services, Knowledge Manager-Evaluate & Treat, Physical Therapy-Evaluate & Treat Discharge Diet: Cardiac Diet Daily Activity as Tolerated: Yes New & Resume Previous Orders New & Resume Previous Orders Resume previous orders on file no new orders Kostas Hadley Dec 29, 2016 14:14 KOSTAS HADLEY MD Dec 29, 2016 14:16
[2016-12-29 15:39] VITALS: BP 122/60
[2016-12-29] MEDS ORDERED: ATORVASTATIN 10 MG (LIPITOR) TABLET PO SCH (21:00)
[2016-12-29] MEDS ORDERED: meTOprolol TARTRATE 25 MG (LOPRESSOR) TABLET PO SCH (21:00)
== END 2016-12-29 14:13 ==
LOC: EDUNIT# 02:55 → ER 02:57 → UNDOADMOB 04:20 → 4TH 04:20 → UNDOADMOB 05:50 → UNDODISOB 15:00
PROVIDERS: ADMIT Family Medicine; ATTEND Family Medicine
DX: R07.9 Chest pain, unspecified (principal); E11.9 Type 2 diabetes mellitus without complications; I10 Essential (primary) hypertension; E78.00 Pure hypercholesterolemia, unspecified; I25.10 Atherosclerotic heart disease of native coronary artery without angina pectoris; I48.2 Chronic atrial fibrillation; I25.2 Old myocardial infarction; Z79.82 Long term (current) use of aspirin; Z79.899 Other long term (current) drug therapy; Z79.84 Long term (current) use of oral hypoglycemic drugs
CPT/HCPCS: 36415; 71010; 80053; 83735; 83874; 83880; 84484; 85025; 85610; 85730; 93005; 93041; 96374; G0378

== ENCOUNTER → 2017-01-22 | Outpatient (CLI) | payer MEDICAID ==
[~2017-01-22] MED LIST changes: +CATHETER FLUSH 10 ML SYR IV PRN; +DEXT1DRO7 OP; +FAMO20TA3 PO; +IOHEXOL 350 MG/ML 100 ML (OMNIPAQUE 350) VIAL IV ONE; +METO50TA2 PO; +MULT-178 PO; +NS 100 ML (IVPB) BAG IV ONE; +POTA10CA68 PO
--- NOTE | 2017-01-22 16:05 | Diagnostic Imaging Report ---
PROCEDURE: CT abdomen and pelvis with contrast. TECHNIQUE: Multiple contiguous axial images were obtained through the abdomen and pelvis after administration of intravenous contrast. INDICATION: Colon cancer. Left lower quadrant pain. 100 mL of Omnipaque 350 is administered intravenously. COMPARISON: 02/09/2016. FINDINGS: There is a moderate-sized hiatal hernia. There are again noted surgical clips around the GE junction. Correlate with surgical history. There is interstitial thickening and scarring seen in the lung bases. The liver, the spleen, the pancreas, and the adrenal glands appear unremarkable. The gallbladder is not seen. Correlate to surgical history. There is a 1.4 cm nonobstructive stone in the lower pole of the right kidney. The kidneys otherwise demonstrate symmetric contrast enhancement. There is symmetric contrast excretion as well. The abdominal aorta is normal in caliber. No para-aortic significantly enlarged lymph node is seen. There is a ventral hernia with wide neck seen in the infraumbilical region containing nonobstructed bowel loops. The urinary bladder demonstrates mild wall thickening. The prostate is slightly heterogeneous with no significant enlargement. No significant free fluid or fluid collection in the abdomen or pelvis is seen. The osseous structures demonstrate chronic dislocation of the left hip with a deformity in the pelvis and pseudoarticulation of the left femoral head with the lateral aspect of the iliac bone. IMPRESSION: 1. Nonobstructive stone measuring 1.4 cm in the lower pole of the right kidney seen. 2. Lower abdominal ventral hernia with a wide neck containing gas nonobstructed bowel loops. 3. Moderate hiatal hernia. 4. Chronic left hip dislocation. Dictated by: Dictated on workstation # [id number]
== END ==
LOC: RAD 09:50
PROVIDERS: ATTEND Family Medicine
DX: N20.0 Calculus of kidney (principal); K43.9 Ventral hernia without obstruction or gangrene; K44.9 Diaphragmatic hernia without obstruction or gangrene; M24.452 Recurrent dislocation, left hip; C18.9 Malignant neoplasm of colon, unspecified
CPT/HCPCS: 74177

== ENCOUNTER → 2017-11-17 | Outpatient (CLI) | payer MEDICAID ==
[~2017-11-17] MED LIST changes: +ACHD5005 PO; -CATHETER FLUSH 10 ML SYR IV PRN; -HYDR-3812 PO; -IOHEXOL 350 MG/ML 100 ML (OMNIPAQUE 350) VIAL IV ONE; +METO50TA15 PO; -METO50TA2 PO; -NS 100 ML (IVPB) BAG IV ONE; -POTA20LI PO; +POTA20LI3 PO
--- NOTE | 2017-11-17 13:32 | Diagnostic Imaging Report ---
INDICATION: Pneumonia. TIME OF EXAM: 12:48 p.m. Correlation is made with prior study of 12/29/2016. FINDINGS: The heart size is stable. There appears to be some infiltrate in the left base, obscuring the left hemidiaphragm. The chronicity of this is indeterminate. Right lung appears to be fairly clear. No significant effusion or pneumothorax is seen. IMPRESSION: Left basilar infiltrate/atelectasis, acuity indeterminate. Dictated by: Dictated on workstation # [id number]
== END ==
LOC: RAD 11:30
PROVIDERS: ATTEND Family Medicine
DX: J18.9 Pneumonia, unspecified organism (principal)
CPT/HCPCS: 71045

== ENCOUNTER → 2018-12-07 | Outpatient (CLI) | payer MEDICAID ==
--- NOTE | 2018-12-07 21:04 | Diagnostic Imaging Report ---
Right wrist at 313 hours. INDICATION: Swollen wrist. 3 views were obtained. There are no prior studies available for comparison. FINDINGS: There is no fracture, dislocation or acute bony abnormality evident. There is mild narrowing of the radiocarpal joint. There is also fairly severe degenerative disease involving the triscaphe joint. There may be mild soft tissue edema about the wrist joint. IMPRESSION: There is no evidence for an acute bony abnormality. Dictated by: Dictated on workstation # [id number]
== END ==
LOC: RAD 14:49
PROVIDERS: ATTEND Family Medicine
DX: M25.431 Effusion, right wrist (principal)
CPT/HCPCS: 73110

== ENCOUNTER 2018-12-26 15:45 | Emergency (ER) | payer MEDICAID ==
[~2018-12-26] VITALS: Ht 152.4 cm; Wt 72.6 kg
[2018-12-26] MEDS ORDERED: morphine INJ 10 MG/ML 1ML (SYR OR VIAL) ONE (16:07)
[2018-12-26] MEDS ORDERED: LIDOCAINE/EPI 2% 1:100,00 (XYLOCAINE) 20 ML VIAL ONE (16:09)
--- NOTE | 2018-12-26 16:09 | ED Fall/Injury ---
General Chief Complaint: Trauma-Non Activation Stated Complaint: FALL Source: patient Exam Limitations: no limitations History of Present Illness Date Seen by Provider: Dec 26, 2018 Time Seen by Provider: 15:54 Initial Comments Here by EMS with report of fall from a wheelchair. Apparently he was sitting in his wheelchair outside of the nursing care facility that he resides at. Some how he unlocked his wheelchair and it rolled down the wheelchair ramp and hit a curb. This caused him to fall out of his wheelchair. He landed on his right shoulder and face. He has significant abrasions and contusions to the forehead, face on the right and to the right shoulder. Complains of pain in those areas. Denies loss of consciousness. No report of vomiting. States pain is 10 out of 10. Patient is on Plavix. Does have history of cerebral palsy and is n onambulatory with paraplegia of the lower extremities and contractures of the legs and feet. Occurred: just prior to arrival (approximately 30 minutes ago) Severity: moderate Injuries/Pain Location: head, face, upper extremity Context: other (see above) Loss of Consciousness: no loss of consciousness Associated Symptoms (Fall): No Abdominal Pain, No Chest Pain; Headache; No Lig htheadedness, No Muscle Spasms, No Neck Pain, No Shortness of Air, No Slurred Speech Allergies and Home Medications Allergies Coded Allergies: Penicillins (Verified Allergy, Unknown, 12/11/05) sulfamethoxazole (Unverified Allergy, Unknown, 03/23/15) trimethoprim (Unverified Allergy, Unknown, 03/23/15) Home Medications Aspirin 81 Mg Tab.chew, 81 MG PO DAILY Prescribed by: GWENDOLYN ROMERO on 03/31/15 0841 Atorvastatin Calcium 10 Mg Tablet, 10 MG PO HS, (Reported) Clopidogrel Bisulfate 75 Mg Tablet, 75 MG PO DAILY Prescribed by: GWENDOLYN ROMERO on 03/31/15 0841 Cyanocobalamin 1,000 Mcg/Ml Vial, 1,000 MCG IM 1ST OF MONTH, (Reported) Dextran 70/Hypromellose 1 Each Droperette, 1 EACH OP DAILY PRN for DRY EYES Prescribed by: ERNESTO MACIEL on 12/29/16 0835 Docusate Sodium 100 Mg Capsule, 100 MG PO BID, (Reported) Famotidine 20 Mg Tablet, 20 MG PO BID Prescribed by: ERNESTO MACIEL on 12/29/16 0835 Fenofibric Acid (Choline) 135 Mg Capsule.dr, 135 MG PO HS, (Reported) Finasteride 5 Mg Tab, 5 MG PO DAILY, (Reported) Furosemide 40 Mg Tablet, 40 MG PO AM & NOON, (Reported) Hydrocodone Bit/Acetaminophen 1 Each Tablet, 1 EACH PO DAILY PRN for PAIN-MILD TO MODERATE Prescribed by: ERNESTO MACIEL on 12/29/16 0835 Lisinopril 2.5 Mg Tablet, 2.5 MG PO DAILY Prescribed by: GWENDOLYN ROMERO on 03/31/15 0841 Metformin Hcl 500 Mg Tablet, 1,000 MG PO BID, (Reported) TAKES 2 (500MG) TABLETS Metoprolol Tartrate 25 Mg Tablet, 25 MG PO HS Prescribed by: ERNESTO MACIEL on 12/29/16 0835 Metoprolol Tartrate 50 Mg Tablet, 50 MG PO DAILY Prescribed by: ERNESTO MACIEL on 12/29/16 0835 Multivitamin 1 Each Tablet, 1 EACH PO DAILY Prescribed by: ERNESTO MACIEL on 12/29/16 0835 Nitroglycerin 0.4 Mg Tab.subl, 0.4 MG SL UD PRN for CHEST PAIN, (Reported) Arnot-3/Dha/Epa/Fish Oil 1,000 Mg Capsule, 1,000 MG PO BID, (Reported) Phenyleph/Pramoxin/Glycr/W.pet 26 Gm Cream..g., 1 MG RC HS, (Reported) Potassium Chloride 10 Meq Capsule.er, 10 MEQ PO BID Prescribed by: ERNESTO MACIEL on 12/29/16 0835 Senna 8.6 Mg Tab, 8.6 MG PO BID, (Reported) Shark Liver Oil/[place] Butter 1 Each Supp.rect, 1 SUPP.RECT RC Q8H PRN for HEMORRHOIDS, (Reported) Tamsulosin Hcl 0.4 Mg Cap.er.24h, 0.4 MG PO HS, (Reported) Patient Home Medication List Home Medication List Reviewed: Yes Review of Systems Review of Systems Constitutional: see HPI; No chills, No fever Eyes: Denies Blurred Vision; Other (periorbital bruising) Ears, Nose, Mouth, Throat: no symptoms reported Respiratory: no symptoms reported Cardiovascular: No chest pain; edema Gastrointestinal: No abdominal pain, No nausea, No vomiting Musculoskeletal: joint pain, muscle pain Skin: change in color, lesions Psychiatric/Neurological: Headache, Pre-Existing Deficit All Other Systems Reviewed Negative Unless Noted: Yes Past Reycrph-Pqppbd-Xtyvgw Hx Past Med/Social Hx: Reviewed Nursing Past Med/Soc Hx Patient Social History Alcohol Use: Denies Use Recreational Drug Use: No Smoking Status: Former Smoker Recent Foreign Travel: No Contact w/Someone Who Travel: No Recent Hopitalizations: No Immunizations Up To Date Tetanus Booster (TDap): Unknown PED Vaccines UTD: No Date of Pneumonia Vaccine: Sep 29, 2014 Seasonal Allergies Seasonal Allergies: No Past Medical History Surgeries: Yes (KNEES, LEGS, FEET AND ABDOMINAL SURGERY) Orthopedic Respiratory: Yes (SHORTNESS OF BREATH AT TIMES, SLEEP APNEA-WEARS C-PAP) Sleep Apnea Currently Using CPAP: Yes Currently Using BIPAP: No Cardiac: Yes Chronic Edema/Swelling, Coronary Artery Disease, Heart Attack, High Cholesterol, Hypertension Neurological: Yes Cerebral Palsy Reproductive Disorders: No Genitourinary: Yes Benign Prostatic Hyperpl, Bladder Infection Gastrointestinal: Yes (COLON RESECTION) Gastroesophageal Reflux, Chronic Constipation, Hemorrhoids Musculoskeletal: Yes (CEREBRAL PALSY, GENERALIZED PAIN ) Contracture Endocrine: Yes Diabetes, Non-Insulin dep HEENT: Yes Loss of Vision: Denies Hearing Impairment: Hard of Hearing Cancer: Yes Colon Did You Recieve Any Treatments: Yes Psychosocial: Yes Sleep Difficulties, Anxiety, Depression Integumentary: No Blood Disorders: No Adverse Reaction/Blood Tranf: No Family Medical History Reviewed Nursing Family Hx Patient reports no known family medical history. No Pertinent Family Hx Physical Exam Vital Signs Vital Signs - First Documented Capillary Refill : Height, Weight, BMI Height: 5'0.00" Weight: 152lbs. 2.0oz. 69.935172ra; 29.7 BMI Method:Stated General Appearance: WD/WN, mild distress HEENT: PERRL/EOMI, TMs normal, pharynx normal Neck: non-tender, full range of motion, supple, normal inspection Cardiovascular: regular rate, rhythm, no murmur Respiratory: lungs clear, normal breath sounds Gastrointestinal: non tender, soft Extremities: other (lower extremities with contractures. Tender to the area of the right shoulder and pain with range of motion of the right shoulder. Does report some tenderness on palpation of the pelvis.) Neurologic/Psychiatric: alert, normal mood/affect, oriented x 3 Skin: warm/dry, ecchymosis (moderate bruising to the forehead and right side of face as well as to the anterior right shoulder. Scattered ecchymotic lesions to the arms bilateral.), other (3 cm laceration above the right brow that is C- shaped. Abrasion noted to the right shoulder. Abrasion noted to the right cheek into the bridge of the nose.) Alida Coma Score Best Eye Response: (4) Open Spontaneously Best Verbal Response: (5) Oriented Best Motor Response: (6) Obeys Commands Procedures/Interventions Wound Location: Face, Upper Extremities Other Wound Location Forehead, bridge of nose and right hand. Wound Length (cm): 3 Wound's Depth, Shape: irregular Wound Explored: contaminated Irrigated w/ Saline (ccs): 100 Betadine Prep?: Yes Anesthesia: Lidocaine w/ Epi Volume Anesthetic (ccs): 5 Wound Debrided: minimal Suture: Ethlion Suture Size: 4-0 Other Closure Supply: Wound Adhesive Number of Sutures: 8 Layer Closure?: 1 Number Deep Layer Sutures: 0 Sterile Dressing Applied?: Yes Progress 3 cm laceration to forehead closed with 6 simple interrupted sutures. There were 2 other small lacerations just below this area that each were closed with one simple interrupted suture each. Abrasions to the bridge of nose were covered with skin glue. Skin tear to the right hand covered with skin glue. Tolerated procedure well with no complication. Abrasions and lacerated wounds covered with antibiotic ointment and dressing. Progress/Results/Core Measures Results/Orders My Orders Orders - JELENA BROWN MD Ct Head/Face/Cervical Wo (12/26/18 15:55) Chest 1 View, Ap/Pa Only (12/26/18 15:55) Shoulder, Right, 3 Views (12/26/18 15:55) Pelvis (12/26/18 15:55) Dipht,Pertuss(Acell),Tet Adult (Boostrix (12/26/18 16:15) Lidocaine/Epi 1% 1:100,000 (Xylocaine /E (12/26/18 16:10) Morphine Injection (Morphine Injection (12/26/18 16:10) Morphine Injection (Morphine Injection (12/26/18 16:07) Lidocaine/Epi 2% 1:100,000 (Xylocaine/Ep (12/26/18 16:09) Medications Given in ED Current Medications Medications Dose Ordered Sig/Carlos Route Start Time Stop Time Status Last Admin Dose Admin Diphtheria/ Tetanus/Acell Pertussis 0.5 ml ONCE ONCE IM 12/26/18 16:15 12/26/18 16:16 DC 12/26/18 17:37 0.5 ML Lidocaine/ Epinephrine 20 ml STK-MED ONCE .ROUTE 12/26/18 16:09 12/26/18 16:14 DC 12/26/18 17:37 20 ML Vital Signs/I&O 12/26/18 12/26/18 15:47 15:47 Temp 98.5 98.5 Pulse 83 83 Resp 17 17 B/P (MAP) 107/77 (87) 107/77 (87) Pulse Ox 93 93 O2 Delivery Room Air Room Air Progress Progress Note : Progress Note Seen and evaluated. CT head, face and C-spine ordered. X-ray of the right shoulder, chest and pelvis ordered. Patient declined pain medicine. Tetanus shot ordered. Prior to x-ray, patient is now requesting pain medicine. Morphine 5 mg IM ordered. Monitor patient. 1720: No acute findings on radiological studies. Wound repair proceeding. No requirements for admission and patient will be discharged back to alf. 1736: Wounds closed and covered with antibiotic ointment and dressing. Discharged home with return precautions. Patient verbalize understanding instructions and agreement with plan. Patient did receive morphine 5 mg IM for pain. We will write for increasing his hydrocodone to 1 tablet every 6 hours when necessary for pain. An order for that was written for the alf. Diagnostic Imaging Diagonstic Imaging: CT Plain Films/CT/US/NM/MRI: facial bones, c-spine, head Comments [facility], [place] NAME: KRISTENJUNIOR Patiño MED REC#: [id number] PT STATUS: REG ER : 1935 PHYSICIAN: JELENA BROWN MD ADMIT DATE: 12/26/18/ER Draft Date of Exam:12/26/18 CT HEAD/FACE/CERVICAL WO PROCEDURE: CT head, face, and cervical spine without contrast. TECHNIQUE: Multiple contiguous axial images were obtained through the head, neck, and facial bones without the use of intravenous contrast. Sagittal and coronal reformations through the cervical spine and facial bones were also performed. Auto Exposure Controls were utilized during the CT exam to meet ALARA standards for radiation dose reduction. INDICATION: Face, head and neck trauma, headache. COMPARISON: None. CT head: There is a right frontal parietal scalp hematoma. No underlying hemorrhage or focus of acute ischemia is seen. There is mild age-related cerebral volume loss and chronic small vessel ischemic changes. No extra-axial fluid collection is seen. There is no skull fracture. Paranasal sinuses and mastoids are clear. IMPRESSION: No acute intracranial abnormalities. CT cervical spine: Alignment is normal. There is no visible subluxation or fracture. There is moderate to severe diffuse degenerative disc disease and facet joint arthropathy. No osseous lesion is identified. The central canal is patent. IMPRESSION: No traumatic malalignment or fracture. CT face: Nasal septum is midline. The orbits are symmetric. The paranasal sinuses are clear. The zygomatic arches and mandible are intact. Temporomandibular joints are approximated. There is no osseous lesion. IMPRESSION: No facial fracture identified. Dictated on workstation # [id number] Dict: 12/26/18 1650 Trans: 12/26/18 1659 [facility] [id number] Interpreted by: VIVIENNE KAPLAN Electronically signed by: Reviewed: Reviewed by Me Diagonstic Imaging: Xray Plain Films/CT/US/NM/MRI: chest Comments [facility], [place] NAME: JUNIOR Kaylyn PETERSON [facility] REC#: [id number] PT STATUS: REG ER : 1935 PHYSICIAN: JELENA BROWN MD ADMIT DATE: 12/26/18/ER Draft Date of Exam:12/26/18 CHEST 1 VIEW, AP/PA ONLY INDICATION: Fall and pain. TIME OF EXAM: 4:56 p.m. EXAMINATION: Single view of the chest was obtained. COMPARISON: Prior chest from 11/17/2017. FINDINGS: Heart size is stable. No infiltrates are seen. There is some mild interstitial changes in the left base which may be chronic. No effusion or pneumothorax is seen. IMPRESSION: No acute cardiopulmonary process is detected. Dictated on workstation # [id number] Dict: 12/26/18 170 Trans: 12/26/181710 [facility] [id number] Interpreted by: DEONTE FONTENOT MD Electronically signed by: Reviewed: Reviewed by Or Diagonstic Imaging: Xray Plain Films/CT/US/NM/MRI: pelvis Comments [facility] [place] [place] NAME: JUNIOR [facility] REC#: [id number] PT STATUS: REG ER : 1935 PHYSICIAN: JELENA BROWN MD ADMIT DATE: 12/26/18/ER Draft Date of Exam:12/26/18 PELVIS INDICATION: Fall. TIME OF EXAM: 5:01 p.m. EXAMINATION: Pelvis. FINDINGS: Right hip shows normal femoral acetabular alignment. Chronic dislocation of the left hip is seen. Femoral head articulates with the lateral and lower portion of the left iliac bone. This is similar to study dating back to 2009. No fracture is seen. Rami are intact. The SI joints and symphysis are non-widened. IMPRESSION: Chronic left hip dislocation. No acute bony abnormality is seen. Dictated on workstation # [id number] Dict: 12/26/181710 Trans: 12/26/181713 [facility] [id number] Interpreted by: DEONTE FONTENOT MD Electronically signed by: Reviewed: Reviewed by Or Diagonstic Imaging: Xray Plain Films/CT/US/NM/MRI: other (right shoulder 3 view) Comments [facility] [place] [place] NAME: JUNIOR [facility] REC#: [id number] PT STATUS: REG ER : 1935 PHYSICIAN: JELENA BROWN MD ADMIT DATE: 12/26/18/ER Draft Date of Exam:12/26/18 SHOULDER, RIGHT, 3 VIEWS INDICATION: Fall and right shoulder pain. TIME OF EXAM: 04:56 p.m. FINDINGS: Three views of right shoulder were obtained. There is significant glenohumeral degenerative change. There is superior migration of the humeral head in relation to the glenoid with complete loss of the normal acromiohumeral space. This is consistent with chronic rotator cuff arthropathy. No fractures are seen. IMPRESSION: Chronic rotator cuff arthropathy of the right shoulder. No acute bony abnormality is detected. Dictated on workstation # [id number] Dict: 12/26/18 1712 Trans: 12/26/18 1715 [facility] [id number] Interpreted by: DEONTE FONTENOT MD Electronically signed by: Departure Impression Primary Impression: Head injury Qualified Codes: S09.90XA - Unspecified injury of head, initial encounter Additional Impressions: Facial laceration Qualified Codes: S01.81XA - Laceration without foreign body of other part of head, initial encounter Shoulder contusion Qualified Codes: S40.011A - Contusion of right shoulder, initial encounter Facial abrasion Qualified Codes: S00.81XA - Abrasion of other part of head, initial encounter Shoulder abrasion Qualified Codes: S40.211A - Abrasion of right shoulder, initial encounter Skin tear of right hand without complication Qualified Codes: S61.411A - Laceration without foreign body of right hand, initial encounter Disposition: 01 HOME, SELF-CARE Condition: Stable Departure-Patient Inst. Decision time for Depature: 17:22 Referrals: MELANIE SANDOVAL DO (PCP/Family) Primary Care Physician Patient Instructions: Laceration Repair With Stitches (DC), Skin Abrasions, Closed Head Injury (DC), Contusion (DC) Add. Discharge Instructions: All discharge instructions reviewed with patient and/or family. Voiced understanding. Sutures out in 7 days. You may use antibiotic ointment over sutured and abrasion wounds. Do not use ointment over glued wounds. It is okay to gently clean areas of concern daily and apply antibiotic ointment. Use local wound care protocol. Follow-up with your doctor this week for recheck and further evaluation. Return for worse pain, weakness, breathing problems, foul-smelling drainage or signs of infections to the wounds or other concerns as needed. You may have one of your hydrocodone 5/325 mg tablets every 6 hours as needed for pain for the next 7 days and then return to previous scheduling. Copy Copies To 1: MELANIE SANDOVAL TIMOTHY D MD Dec 26, 2018 16:09
[2018-12-26] MEDS ORDERED: LIDOCAINE/EPI 1%-1:100,000 (XYLOCAINE) 20ML INJ STA (16:10)
[2018-12-26] MEDS ORDERED: morphine INJ 10 MG/ML 1ML (SYR OR VIAL) IM STA (16:10)
[2018-12-26] MEDS ORDERED: TETANUS,DIPTH,PERTUSS P/F (BOOSTRIX) 0.5 ML VIAL IM ONE (16:15)
--- NOTE | 2018-12-26 17:00 | Diagnostic Imaging Report ---
PROCEDURE: CT head, face, and cervical spine without contrast. TECHNIQUE: Multiple contiguous axial images were obtained through the head, neck, and facial bones without the use of intravenous contrast. Sagittal and coronal reformations through the cervical spine and facial bones were also performed. Auto Exposure Controls were utilized during the CT exam to meet ALARA standards for radiation dose reduction. INDICATION: Face, head and neck trauma, headache. COMPARISON: None. CT head: There is a right frontal parietal scalp hematoma. No underlying hemorrhage or focus of acute ischemia is seen. There is mild age-related cerebral volume loss and chronic small vessel ischemic changes. No extra-axial fluid collection is seen. There is no skull fracture. Paranasal sinuses and mastoids are clear. IMPRESSION: No acute intracranial abnormalities. CT cervical spine: Alignment is normal. There is no visible subluxation or fracture. There is moderate to severe diffuse degenerative disc disease and facet joint arthropathy. No osseous lesion is identified. The central canal is patent. IMPRESSION: No traumatic malalignment or fracture. CT face: Nasal septum is midline. The orbits are symmetric. The paranasal sinuses are clear. The zygomatic arches and mandible are intact. Temporomandibular joints are approximated. There is no osseous lesion. IMPRESSION: No facial fracture identified. Dictated by: Dictated on workstation # [id number]
--- NOTE | 2018-12-26 17:11 | Diagnostic Imaging Report ---
INDICATION: Fall and pain. TIME OF EXAM: 4:56 p.m. EXAMINATION: Single view of the chest was obtained. COMPARISON: Prior chest from 11/17/2017. FINDINGS: Heart size is stable. No infiltrates are seen. There is some mild interstitial changes in the left base which may be chronic. No effusion or pneumothorax is seen. IMPRESSION: No acute cardiopulmonary process is detected. Dictated by: Dictated on workstation # [id number]
--- NOTE | 2018-12-26 17:14 | Diagnostic Imaging Report ---
INDICATION: Fall. TIME OF EXAM: 5:01 p.m. EXAMINATION: Pelvis. FINDINGS: Right hip shows normal femoral acetabular alignment. Chronic dislocation of the left hip is seen. Femoral head articulates with the lateral and lower portion of the left iliac bone. This is similar to study dating back to 2009. No fracture is seen. Rami are intact. The SI joints and symphysis are non-widened. IMPRESSION: Chronic left hip dislocation. No acute bony abnormality is seen. Dictated by: Dictated on workstation # [id number]
--- NOTE | 2018-12-26 17:16 | Diagnostic Imaging Report ---
INDICATION: Fall and right shoulder pain. TIME OF EXAM: 04:56 p.m. FINDINGS: Three views of right shoulder were obtained. There is significant glenohumeral degenerative change. There is superior migration of the humeral head in relation to the glenoid with complete loss of the normal acromiohumeral space. This is consistent with chronic rotator cuff arthropathy. No fractures are seen. IMPRESSION: Chronic rotator cuff arthropathy of the right shoulder. No acute bony abnormality is detected. Dictated by: Dictated on workstation # [id number]
--- NOTE | 2018-12-26 17:42 | NUR ---
SPOKE WITH NURSE AT [facility]. WILL SEND TRANSPORT FOR PATIENT.
--- NOTE | 2018-12-26 19:00 | NUR ---
Report recieved from MAYAR Funez to assume care of pt @ this time.
--- NOTE | 2018-12-26 19:10 | NUR ---
Spoke with Brenden at [facility], he stated that postal transportation clerk was going to get van from [facility] and would be coming after that to get patient.
[2018-12-26 20:03] VITALS: BP 116/61
== END 2018-12-26 20:03 | disposition home or self-care (01) ==
LOC: EDUNIT# 15:45 → ER 15:46
DX: S09.90XA Unspecified injury of head, initial encounter (principal); S01.81XA Laceration without foreign body of other part of head, initial encounter; S61.411A Laceration without foreign body of right hand, initial encounter; S40.011A Contusion of right shoulder, initial encounter; G47.30 Sleep apnea, unspecified; I10 Essential (primary) hypertension; E78.00 Pure hypercholesterolemia, unspecified; I25.2 Old myocardial infarction; I25.10 Atherosclerotic heart disease of native coronary artery without angina pectoris; N40.0 Benign prostatic hyperplasia without lower urinary tract symptoms; K21.9 Gastro-esophageal reflux disease without esophagitis; E11.9 Type 2 diabetes mellitus without complications; F41.9 Anxiety disorder, unspecified; F32.9 Major depressive disorder, single episode, unspecified; Z85.038 Personal history of other malignant neoplasm of large intestine; Z88.0 Allergy status to penicillin; Z88.2 Allergy status to sulfonamides; Z88.1 Allergy status to other antibiotic agents; Z79.82 Long term (current) use of aspirin; Z79.02 Long term (current) use of antithrombotics/antiplatelets; Z79.84 Long term (current) use of oral hypoglycemic drugs; Z87.891 Personal history of nicotine dependence; V00.811A Fall from moving wheelchair (powered), initial encounter; Y92.129 Unspecified place in nursing home as the place of occurrence of the external cause
CPT/HCPCS: 12011; 70450; 70486; 71045; 72125; 72170; 73030; 90715

== ENCOUNTER → 2019-03-18 | Outpatient (CLI) | payer MEDICAID ==
--- NOTE | 2019-03-18 16:14 | Diagnostic Imaging Report ---
INDICATION: Left shoulder pain for a long time. Left arm is numb and. TECHNIQUE: Two views left clavicle. CORRELATION STUDY: None. FINDINGS: Left clavicle is intact. There is hypertrophic change about the acromioclavicular joint. There is rather significant high-riding humeral head with marked narrowing of the subacromial joint space. Advanced degenerative changes of the visualized glenohumeral joint. There is also noted what appears to be advanced degenerative change of the visualized cervical spine. IMPRESSION: 1. Negative for acute bony abnormality, left clavicle. 2. Findings likely reflective of underlying chronic rotator cuff pathology. Advanced degenerative changes of glenohumeral joint. Dictated by: Dictated on workstation # [id number]
--- NOTE | 2019-03-18 16:18 | Diagnostic Imaging Report ---
INDICATION: Left shoulder pain for a long time. Left arm is numb. TECHNIQUE: Three views of the left shoulder. CORRELATION STUDY: None. FINDINGS: There is a high-riding humeral head with rather significant narrowing of the acromiohumeral joint space. This is suggestive of likely rotator cuff pathology. Advanced degenerative changes to the glenohumeral joint. Hypertrophic change about the acromioclavicular joint. Clavicle appears intact. Advanced degenerative changes to the cervical spine. IMPRESSION: 1. Negative for acute bony abnormality about the shoulder. 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 Advanced degenerative changes at the shoulder. Dictated by: Dictated on workstation # [id number]
== END ==
LOC: RAD 12:54
PROVIDERS: ATTEND Family Medicine
DX: M19.012 Primary osteoarthritis, left shoulder (principal)
CPT/HCPCS: 73000; 73030

== ENCOUNTER → 2021-12-15 | Outpatient (CLI) | payer MEDICAID ==
[~2021-12-15] MED LIST changes: -LISI2.5T PO; +LISI2.5T13 PO; -PHEN26CR RC; +PHEN26CR2 RC
[2021-12-15 14:36] LABS: BILIRUBIN,URINE NEGATIVE (NEGATIVE); CLARITY,URINE CLOUDY; COLOR,URINE YELLOW; GLUCOSE, URINE (UA) NEGATIVE (NEGATIVE); KETONES,URINE NEGATIVE (NEGATIVE); LEUKOCYTE ESTERASE ,URINE 3+ (NEGATIVE); NITRITE,URINE NEGATIVE (NEGATIVE); PROTEIN,URINE 2+ (NEGATIVE)
[2021-12-15 14:43] LABS: BACTERIA,URINE FEW /HPF; RBC,URINE >100 /HPF; SQUAMOUS EPITHELIAL CELL,UR RARE /HPF; WBC,URINE >100 /HPF
== END ==
LOC: LABNPT 14:31
PROVIDERS: ATTEND Family Medicine
DX: R31.9 Hematuria, unspecified (principal)
CPT/HCPCS: 81000; 87088

== ENCOUNTER 2022-11-05 13:02 | Emergency (ER) | payer MEDICAID ==
--- NOTE | 2022-11-05 13:27 | ED General ---
General Chief Complaint: Neurological Problems Stated Complaint: SLURRED SPEECH | WEAKNESS Source of Information: Patient, Fpc Records Exam Limitations: Physical Impairments History of Present Illness Date Seen by Provider: November 05, 2022 Time Seen by Provider: 13:15 Initial Comments Patient is an 87-year-old male who presents from [facility] by ambulance chief complaint of drooping face, sluggish responses after lunch today. His nurse Suleman reports that he normally has clear speech. Is some residual right-sided weakness from previous stroke. Normally alert and oriented x4. She states that he was completely different when they went to check on him for lunch. His vitals were stable, she reported 114/60 blood pressure, 52 heart rate, 95% on room air. No reported recent illnesses. I asked if he normally wears dentures and she was not sure. The patient is edentulous at presentation. Patient is able to tell me he is not really sure why he is here. I cannot really understand him secondary to dysarthria about any specific complaints. He is quite tender to palpation over the anterior abdomen. Old scars noted from prior surgeries. High-pitched tinkling bowel sounds. Allergies and Home Medications Allergies Coded Allergies: Penicillins (Verified Allergy, Unknown, 12/11/05) sulfamethoxazole (Unverified Allergy, Unknown, 03/23/15) trimethoprim (Unverified Allergy, Unknown, 03/23/15) Patient Home Medication List Aspirin (Aspirin) 81 Mg Tab.chew, 81 MG PO DAILY Prescribed by: GWENDOLYN ROMERO on 03/31/15 0841 Atorvastatin Calcium (Lipitor) 10 Mg Tablet, 10 MG PO HS, (Reported) Entered as Reported by: CLAIRE MARTINEZ on 02/24/14 1258 Clopidogrel Bisulfate (Clopidogrel) 75 Mg Tablet, 75 MG PO DAILY Prescribed by: GWENDOLYN ROMERO on 03/31/15 0841 Cyanocobalamin (Cyanocobalamin) 1,000 Mcg/Ml Vial, 1,000 MCG IM 1ST OF MONTH, (Reported) Entered as Reported by: CLAIRE MARTINEZ on 02/24/14 1258 Dextran 70/Hypromellose (Artificial Tears) 1 Each Droperette, 1 EACH OP DAILY PRN for DRY EYES Prescribed by: ERNESTO MACIEL on 12/29/16 0835 Docusate Sodium (Colace) 100 Mg Capsule, 100 MG PO BID, (Reported) Entered as Reported by: ARIELLE MYLES on 04/23/12 1059 Famotidine (Acid Reception (FAMOTIDINE)) 20 Mg Tablet, 20 MG PO BID Prescribed by: ERNESTO MACIEL on 12/29/16 0835 Fenofibric Acid (Choline) (Trilipix) 135 Mg Capsule.dr, 135 MG PO HS, (Reported) Entered as Reported by: OMAR ONEILL on 03/23/15 0453 Finasteride (Proscar) 5 Mg Tab, 5 MG PO DAILY, (Reported) Entered as Reported by: CLAIRE MARTINEZ on 02/24/14 1304 Furosemide (Furosemide) 40 Mg Tablet, 40 MG PO AM & NOON, (Reported) Entered as Reported by: SHIRA NGUYEN on 02/21/10 1451 Hydrocodone Bit/Acetaminophen (Lortab 5 Mg Tablet) 1 Each Tablet, 1 EACH PO DAILY PRN for PAIN-MILD TO MODERATE Prescribed by: ERNESTO MACIEL on 12/29/16 0835 Lisinopril (Lisinopril) 2.5 Mg Tablet, 2.5 MG PO DAILY Prescribed by: GWENDOLYN ROMERO on 03/31/15 0841 Metformin Hcl (Metformin 500 Mg) 500 Mg Tablet, 1,000 MG PO BID, (Reported) Entered as Reported by: CLAIRE MARTINEZ on 02/24/14 1258 Metoprolol Tartrate (Metoprolol Tartrate) 25 Mg Tablet, 25 MG PO HS Prescribed by: ERNESTO MACIEL on 12/29/16 0835 Metoprolol Tartrate (Metoprolol Tartrate) 50 Mg Tablet, 50 MG PO DAILY Prescribed by: ERNESTO MACIEL on 12/29/16 0835 Multivitamin (Multiple Vitamins) 1 Each Tablet, 1 EACH PO DAILY Prescribed by: ERNESTO MACIEL on 12/29/16 0835 Nitroglycerin (Nitrostat) 0.4 Mg Tab.subl, 0.4 MG SL UD PRN for CHEST PAIN, (Reported) Entered as Reported by: TAMI SCHMITT on 03/30/15 1500 [place]-3/Dha/Epa/Fish Oil (Fish Oil 1,000 Mg Softgel) 1,000 Mg Capsule, 1,000 MG PO BID, (Reported) Entered as Reported by: CLAIRE MARTINEZ on 02/24/14 1258 Phenyleph/Pramoxin/Glycr/W.pet (Preparation H Cream) 26 Gm Cream..g., 1 MG RC HS, (Reported) Entered as Reported by: TAMI SCHMITT on 03/30/15 1500 Potassium Chloride (Klor-Con Sprinkle) 10 Meq Capsule.er, 10 MEQ PO BID Prescribed by: ERNESTO MACIEL on 12/29/16 0835 Senna (Senokot Tab) 8.6 Mg Tab, 8.6 MG PO BID, (Reported) Entered as Reported by: CLAIRE MARTINEZ on 02/24/14 1304 Shark Liver Oil/[place] Butter (Hemorrhoidal Suppositories) 1 Each Supp.rect, 1 SUPP.RECT RC Q8H PRN for HEMORRHOIDS, (Reported) Entered as Reported by: TAIM SCHMITT on 03/30/15 1500 Tamsulosin Hcl (Flomax Capsule) 0.4 Mg Cap.er.24h, 0.4 MG PO HS, (Reported) Entered as Reported by: CLAIRE MARTINEZ on 02/24/14 1258 Past Skhffhl-Tmeszq-Mltonh Hx Patient Social History Tobacco Use?: No Substance use?: No Alcohol Use?: No Pt feels they are or have been: No Immunizations Up To Date Tetanus Booster (TDap): Unknown PED Vaccines UTD: No Seasonal Allergies Seasonal Allergies: No Past Medical History Surgery/Hospitalization HX: DM, HX OF STROKE, CP Surgeries: Yes (KNEES, LEGS, FEET AND ABDOMINAL SURGERY) Orthopedic Respiratory: Yes (SHORTNESS OF BREATH AT TIMES, SLEEP APNEA-WEARS C-PAP) Sleep Apnea Currently Using CPAP: Yes Currently Using BIPAP: No Cardiac: Yes Chronic Edema/Swelling, Coronary Artery Disease, Heart Attack, High Cholesterol, Hypertension Neurological: Yes Cerebral Palsy Reproductive Disorders: No Genitourinary: Yes Benign Prostatic Hyperpl, Bladder Infection Gastrointestinal: Yes (COLON RESECTION) Gastroesophageal Reflux, Chronic Constipation, Hemorrhoids Musculoskeletal: Yes (CEREBRAL PALSY, GENERALIZED PAIN ) Contracture Endocrine: Yes Diabetes, Non-Insulin dep HEENT: Yes Loss of Vision: Denies Hearing Impairment: Hard of Hearing Cancer: Yes Colon Did You Recieve Any Treatments: Yes Psychosocial: Yes Sleep Difficulties, Anxiety, Depression Integumentary: No Blood Disorders: No Adverse Reaction/Blood Tranf: No Family Medical History Patient reports no known family medical history. No Pertinent Family Hx Physical Exam Vital Signs Vital Signs - First Documented 11/05/22 13:02 Pulse 61 Resp 20 B/P (MAP) 106/43 (64) Pulse Ox 92 O2 Delivery Room Air Capillary Refill : Height, Weight, BMI Height: 5'0" Weight: 160lbs. 2.0oz. 72.086728th; 29.7 BMI Method:Stated Focused Exam Lactate Level 11/05/22 14:15: Lactic Acid Level 1.13 Lactic Acid Level Laboratory Tests Test 11/05/22 14:15 Lactic Acid Level 1.13 MMOL/L (0.50-2.00) Procedures/Interventions Suture Size: 4-0 Progress/Results/Core Measures Suspected Sepsis SIRS Temperature: Pulse: Respiratory Rate: Laboratory Tests 11/05/22 13:05: White Blood Count 7.9 Blood Pressure / Mean: 11/05/22 14:15: Lactic Acid Level 1.13 Laboratory Tests 11/05/22 13:05: Creatinine 1.26, INR Comment 1.2, Platelet Count 168, Total Bilirubin 0.4 Results/Orders Lab Results Laboratory Tests Test 11/05/22 13:05 11/05/22 13:06 11/05/22 14:15 11/05/22 14:31 Range/Units White Blood Count 7.9 4.3-11.0 10^3/uL Red Blood Count 4.18 L 4.30-5.52 10^6/uL Hemoglobin 12.8 L 13.3-17.7 g/dL Hematocrit 39 L 40-54 % Mean Corpuscular Volume 92 80-99 fL Mean Corpuscular Hemoglobin 31 25-34 pg Mean Corpuscular Hemoglobin Concent 33 32-36 g/dL Red Cell Distribution Width 13.7 10.0-14.5 % Platelet Count 168 130-400 10^3/uL Mean Platelet Volume 10.8 9.0-12.2 fL Immature Granulocyte % (Auto) 1 % Neutrophils (%) (Auto) 66 42-75 % Lymphocytes (%) (Auto) 17 12-44 % Monocytes (%) (Auto) 13 H 0-12 % Eosinophils (%) (Auto) 1 0-10 % Basophils (%) (Auto) 1 0-10 % Neutrophils # (Auto) 5.3 1.8-7.8 10^3/uL Lymphocytes # (Auto) 1.4 1.0-4.0 10^3/uL Monocytes # (Auto) 1.1 H 0.0-1.0 10^3/uL Eosinophils # (Auto) 0.1 0.0-0.3 10^3/uL Basophils # (Auto) 0.0 0.0-0.1 10^3/uL Immature Granulocyte # (Auto) 0.1 0.0-0.1 10^3/uL Prothrombin Time 15.0 H 12.2-14.7 SEC INR Comment 1.2 0.8-1.4 Activated Partial Thromboplast Time 42 H 24-35 SEC D-Dimer 3.60 H 0.00-0.49 UG/ML Sodium Level 142 135-145 MMOL/L Potassium Level 3.6 3.6-5.0 MMOL/L Chloride Level 107 98-107 MMOL/L Carbon Dioxide Level 20 L 21-32 MMOL/L Anion Gap 15 H 5-14 MMOL/L Blood Urea Nitrogen 50 H 7-18 MG/DL Creatinine 1.26 0.60-1.30 MG/DL Estimat Glomerular Filtration Rate 55 BUN/Creatinine Ratio 40 Glucose Level 117 H 70-105 MG/DL Calcium Level 9.7 8.5-10.1 MG/DL Corrected Calcium 10.3 H 8.5-10.1 MG/DL Total Bilirubin 0.4 0.1-1.0 MG/DL Aspartate Amino Transf (AST/SGOT) 25 5-34 U/L Alanine Aminotransferase (ALT/SGPT) 19 0-55 U/L Alkaline Phosphatase 114 40-136 U/L Troponin I 0.042 H <0.028 NG/ML Total Protein 7.5 6.4-8.2 GM/DL Albumin 3.3 3.2-4.5 GM/DL Glucometer 118 H 70-110 MG/DL Lactic Acid Level 1.13 0.50-2.00 MMOL/L Urine Color DARK YELLOW Urine Clarity CLEAR Urine pH 6.5 5-9 Urine Specific [place] 1.010 L 1.016-1.022 Urine Protein 2+ H NEGATIVE Urine Glucose (UA) NEGATIVE NEGATIVE Urine Ketones NEGATIVE NEGATIVE Urine Nitrite NEGATIVE NEGATIVE Urine Bilirubin NEGATIVE NEGATIVE Urine Urobilinogen 0.2 < = 1.0 MG/DL Urine Leukocyte Esterase 3+ H NEGATIVE Urine RBC (Auto) 3+ H NEGATIVE Urine RBC TNTC H /HPF Urine WBC TNTC H /HPF Urine Squamous Epithelial Cells 0-2 /HPF Urine Crystals NONE /LPF Urine Bacteria MODERATE H /HPF Urine Casts NONE /LPF Urine Mucus NEGATIVE /LPF Urine Culture Indicated YES My Orders Orders - KATERIN MORENO MD Cbc With Automated Diff (11/05/22 13:27) Protime With Inr (11/05/22 13:27) Partial Thromboplastin Time (11/05/22 13:27) Comprehensive Metabolic Panel (11/05/22:) Fibrin Degradation Products (11/05/22 13:) Troponin I [place] (11/05/22 13:) Ua Culture If Indicated (11/05/22 13:) Chest 1 View, Ap/Pa Only (11/05/22 13:) Ekg Tracing (11/05/22:) Nothing By Mouth (11/05/22 Lunch) Accucheck Stat ONCE (11/05/22 13:) Ed Iv/Invasive Line Start (11/05/22 13:27) Ed Iv/Invasive Line Start (11/05/22 13:27) Vital Signs Stroke Patient Q15M (11/05/22 13:27) Ct Head Wo-R/O Stroke (11/05/22 13:27) O2 (11/05/22 13:27) Intake & Output ONCE (11/05/22 13:28) Monitor-Rhythm Ecg Trace Only (11/05/22 13:) Dysphagia Screening Tool [id number] (11/05/22 13:27) Post Thrombolytic Adminstratio (11/05/22 13:27) Lipid Panel (11/06/22 06:00) Blood Culture (11/05/22 13:27) Lactic Acid Analyzer (11/05/22 13:27) Lidocaine 2% (Urojet) (Xylocaine Urojet) (11/05/22 13:59) Ns Iv 500 Ml (Sodium Chloride 0.9%) (11/05/22 14:15) Blood Culture (11/05/22 14:20) Urine Culture (11/05/22 14:31) Ceftriaxone Iv/Im (Rocephin Iv/Im) (11/05/22 15:30) Medications Given in ED Current Medications Medications Dose Ordered Sig/Carlos Route Start Time Stop Time Status Last Admin Dose Admin Ceftriaxone Sodium 1000 mg/ Sodium Chloride 50 ml @ 100 mls/hr ONCE ONCE IV 11/05/22 15:30 11/05/22 15:59 DC 11/05/22 15:28 100 MLS/HR Lidocaine HCl 10 ml STK-MED ONCE .ROUTE 11/05/22 13:59 11/05/22 14:03 DC 11/05/22 14:30 10 ML Vital Signs/I&O 11/05/22 13:02 Pulse 61 Resp 20 B/P (MAP) 106/43 (64) Pulse Ox 92 O2 Delivery Room Air Capillary Refill : Point of Care Testing Finger Stick Blood Glucose: 118 Blood Glucose Action Taken: DR. MORENO INFORMED Progress Note : Time: 16:07 Progress Note -Patient seen and evaluated by me, evaluation today includes physical exam, "stroke protocol" with CBC, Chem-12, coags, D-dimer, EKG, single view chest x- ray, CT head without contrast, urinalysis, troponin, blood culture and lactic acid. Pertinent physical exam findings elderly obese male lying on his left side, no acute distress. Significantly difficult to understand secondary to large tongue and edentulous. Speech is dysarthric. He is moving his upper extremities symmetrically. Appears to have good motor strength in both hands and arms. Normal sensation from what I can understand. No apparent facial droop. Cannot really move his legs secondary to chronic debility/weakness. Known to have right-sided over left-sided weakness due to prior stroke. Vital signs are stable, blood pressure 99 systolic on presentation. Afebrile. Differential diagnosis based on history and physical, acute CVA, urinary tract infection, pneumonia, sepsis. Labs and imaging reviewed by me. Patient has CBC that shows normal white count, hemoglobin of 12.8 hematocrit of 39, platelets of 168. Chemistry shows a CO2 of 20 BUN of 50 creatinine of 1.26 serum glucose 117. Lactic acid is normal at 1.13. Troponin slightly elevated at 0.042. D-dimer slightly elevated at 3.6. Coags out, PT of 15 PTT of 42 INR 1.2. Urinalysis shows too numerous to count white and red blood cells with 3+ leukocyte esterase and moderate bacteria. Chest x-ray shows some developing patchy airspace opacities. CT head noncontrast was negative. Patient was treated with 500 cc of normal saline and monitored during his stay. No deterioration in condition. Patient continued to say he wanted to go home. He was given 1 g of Rocephin for his urinary tract infection. We will give him a prescription for cefdinir to cover both urine and possible pulmonary causes of illness. I had a long discussion with his daughter Kristina who is his DPOA. I offered her admission for her father to rule out further cardiac event, carotid ultrasound to look for possible blockages that might be contributing to strokelike symptoms and cardiac monitoring. He states his father would not want any surgeries or interventions if any of those things were discovered. She states he would want to go home. He would not undergo heart cath for carotid endarterectomy. She is comfortable and verbalizes understanding of the risks of leaving with the elevated troponin and this dysarthria. She is also comfortable with antibiotics for home. MAYRA Zapata the patient's nurse has called the senior living to advise them of his return. Kristina stated that one of her sisters would be there to check on him at medical [place] later this afternoon. ECG Initial ECG Impression Date: November 05, 2022 Initial ECG Impression Time: 14:10 Initial ECG Rate: 71 Initial ECG Impression: Atrial Fibrillation Diagnostic Imaging Diagonstic Imaging: CT Comments [facility] [place] NAME: JUNIOR Kaylyn PETERSON [facility] REC#: [id number] PT STATUS: REG ER : 1935 PHYSICIAN: KATERIN MORENO MD ADMIT DATE: 11/05/22/ER Draft Date of Exam:11/05/22 CT HEAD WO-R/O STROKE CLINICAL INDICATION: Patient with increased right-sided weakness and slurred speech. Patient has history of cerebral palsy and stroke. EXAM: Axial CT scan of the brain performed without IV contrast. High-resolution axial CT brain images with sagittal and coronal reformations were also created. Auto Exposure Controls were utilized during the CT exam to meet ALARA standards for radiation dose reduction. COMPARISON: CT scan of the head, face, cervical spine without contrast dated 12/26/2018. FINDINGS: There is no evidence of acute cerebral infarct, intracranial hemorrhage, or gross mass effect. There is no dense vessel sign. There is diffuse brain parenchymal volume loss. There is normal castillo-white matter distinction. There is no significant midline shift or herniation. There is no evidence of hydrocephalus. The basal cisterns are unremarkable. There is extracranial soft tissue thickening in the right forehead region which may be related to residual scarring from previously seen swelling on the prior CT scans. Otherwise, the skull, extracranial soft tissue, and orbits are unremarkable. There is mild mucosal thickening involving ethmoid sinus. Temporal bones show no significant abnormality. IMPRESSION: There is no CT evidence of acute intracranial process. There is no dense vessel seen. Results of this report discussed with Dr. Katerin Moreno via the telephone on 11/05/2022 at 1411 hours. Dictated on workstation # [id number] Dict: 11/05/22 1404 Trans: 11/05/22 1411 [id number] Interpreted by: ABDULLAHI RINCON MD Electronically signed by: Rebekahgonselizabeth Imaging: Xray Plain Films/CT/US/NM/MRI: chest Comments [facility] [place] NAME: PETERSONJUNIOR Patiño [facility] REC#: [id number] PT STATUS: REG ER : 1935 PHYSICIAN: KATERIN MORENO MD ADMIT DATE: 11/05/22/ER Draft Date of Exam:11/05/22 CHEST 1 VIEW, AP/PA ONLY CHEST 1 VIEW, AP/PA ONLY Indication: Altered mental status. Comparison: 12/26/2018 Findings: Bilateral ill-defined pulmonary consolidations have developed. No pleural effusion or pneumothorax. Cardiomegaly. Impression: 1. New bilateral pulmonary opacities have a differential that would include atypical infection, edema or hemorrhage. Dictated on workstation # [id number] Dict: 11/05/22 1412 Trans: 11/05/22 1414 [id number] Interpreted by: DAINA FOSTER MD Electronically signed by: Departure Impression Primary Impression: UTI (urinary tract infection) Qualified Codes: N39.0 - Urinary tract infection, site not specified; R31.9 - Hematuria, unspecified Additional Impressions: Dysarthria Elevated troponin Disposition: 01 HOME, SELF-CARE Condition: Stable/Unchanged Departure-Patient Inst. Decision time for Depature: 16:18 Referrals: MELANIE SANDOVAL DO (PCP) Primary Care Physician Patient Instructions: Urinary Tract Infections in Adults Add. Discharge Instructions: He will need to start cefdinir antibiotics tomorrow. These will need to continue for 7 days total. He can resume his normal home medications. Contact his family doctor for any new, concerning complaints. Scripts Cefdinir (Cefdinir) 300 Mg Capsule 300 MG PO BID, #14 CAP 0 Refills Prov: KATERIN MORENO MD 11/05/22 Copy Copies To 1: MELANIE SANDOVAL KATHRYN M MD November 05, 2022 13:27
[2022-11-05 13:36] LABS: BASOPHILS % (AUTO) 1 % (0-10); EOSINOPHILS # (AUTO) 0.1 10^3/uL (0.0-0.3); EOSINOPHILS % (AUTO) 1 % (0-10); HEMATOCRIT 39 % (40-54); HEMOGLOBIN 12.8 g/dL (13.3-17.7); LYMPHOCYTES # (AUTO) 1.4 10^3/uL (1.0-4.0); LYMPHOCYTES % (AUTO) 17 % (12-44); MEAN CORPUSCULAR HEMOGLOBIN 31 pg (25-34); MEAN CORPUSCULAR HGB CONC 33 g/dL (32-36); MEAN CORPUSCULAR VOLUME 92 fL (80-99); MEAN PLATELET VOLUME 10.8 fL (9.0-12.2); MONOCYTES # (AUTO) 1.1 10^3/uL (0.0-1.0); MONOCYTES % (AUTO) 13 % (0-12); NEUTROPHILS # (AUTO) 5.3 10^3/uL (1.8-7.8); NEUTROPHILS % (AUTO) 66 % (42-75); PLATELET COUNT 168 10^3/uL (130-400); WHITE BLOOD COUNT 7.9 10^3/uL (4.3-11.0)
[2022-11-05 13:39] LABS: ALBUMIN 3.3 GM/DL (3.2-4.5)
[2022-11-05 13:40] LABS: POTASSIUM 3.6 MMOL/L (3.6-5.0)
[2022-11-05 13:41] LABS: CALCIUM 9.7 MG/DL (8.5-10.1)
[2022-11-05 13:42] LABS: TOTAL PROTEIN 7.5 GM/DL (6.4-8.2)
[2022-11-05 13:44] LABS: BILIRUBIN,TOTAL 0.4 MG/DL (0.1-1.0); INR 1.2 (0.8-1.4)
[2022-11-05 13:46] LABS: CREATININE SERUM 1.26 MG/DL (0.60-1.30)
[2022-11-05 13:47] LABS: FIBRIN DEGRADATION PRODUCTS 3.6 UG/ML (0.00-0.49)
[2022-11-05] MEDS ORDERED: LIDOCAINE UROJET 2% GEL 10 ML PKG ONE (13:59)
[2022-11-05] MEDS ORDERED: NS IV 500 ML 500 ML IV SCH (14:15)
--- NOTE | 2022-11-05 14:15 | Diagnostic Imaging Report ---
CHEST 1 VIEW, AP/PA ONLY Indication: Altered mental status. Comparison: 12/26/2018 Findings: Bilateral ill-defined pulmonary consolidations have developed. No pleural effusion or pneumothorax. Cardiomegaly. Impression: 1. New bilateral pulmonary opacities have a differential that would include atypical infection, edema or hemorrhage. Dictated by: Dictated on workstation # [id number]
--- NOTE | 2022-11-05 14:18 | Diagnostic Imaging Report ---
CLINICAL INDICATION: Patient with increased right-sided weakness and slurred speech. Patient has history of cerebral palsy and stroke. EXAM: Axial CT scan of the brain performed without IV contrast. High-resolution axial CT brain images with sagittal and coronal reformations were also created. Auto Exposure Controls were utilized during the CT exam to meet ALARA standards for radiation dose reduction. COMPARISON: CT scan of the head, face, cervical spine without contrast dated 12/26/2018. FINDINGS: There is no evidence of acute cerebral infarct, intracranial hemorrhage, or gross mass effect. There is no dense vessel sign. There is diffuse brain parenchymal volume loss. There is normal castillo-white matter distinction. There is no significant midline shift or herniation. There is no evidence of hydrocephalus. The basal cisterns are unremarkable. There is extracranial soft tissue thickening in the right forehead region which may be related to residual scarring from previously seen swelling on the prior CT scans. Otherwise, the skull, extracranial soft tissue, and orbits are unremarkable. There is mild mucosal thickening involving ethmoid sinus. Temporal bones show no significant abnormality. IMPRESSION: There is no CT evidence of acute intracranial process. There is no dense vessel seen. Results of this report discussed with Dr. Katerin Garnica via the telephone on 11/05/2022 at 1411 hours. Dictated by: Dictated on workstation # [id number]
[2022-11-05 14:42] LABS: BILIRUBIN,URINE NEGATIVE (NEGATIVE); CLARITY,URINE CLEAR; COLOR,URINE DARK YELLOW; GLUCOSE, URINE (UA) NEGATIVE (NEGATIVE); KETONES,URINE NEGATIVE (NEGATIVE); LEUKOCYTE ESTERASE ,URINE 3+ (NEGATIVE); NITRITE,URINE NEGATIVE (NEGATIVE); PH,URINE 6.5 (5-9); PROTEIN,URINE 2+ (NEGATIVE)
[2022-11-05 15:03] LABS: BACTERIA,URINE MODERATE /HPF; RBC,URINE TNTC /HPF; SQUAMOUS EPITHELIAL CELL,UR 0-2 /HPF; WBC,URINE TNTC /HPF
[2022-11-05] MEDS ORDERED: cefTRIAXone IV/IM 1,000 MG in NS (IVPB) 50 ML IV ONE (15:30)
[2022-11-05] MEDS ORDERED: CEFD300C3 PO (16:22)
[2022-11-05 16:36] VITALS: BP 107/96
== END 2022-11-05 16:47 | disposition home or self-care (01) ==
LOC: EDUNIT# 13:03 → ER 13:04
DX: I69.322 Dysarthria following cerebral infarction (principal); N39.0 Urinary tract infection, site not specified; R77.8 Other specified abnormalities of plasma proteins; G47.30 Sleep apnea, unspecified; I10 Essential (primary) hypertension; R79.1 Abnormal coagulation profile; E66.9 Obesity, unspecified; Z99.89 Dependence on other enabling machines and devices; Z68.27 Body mass index [BMI] 27.0-27.9, adult; Z88.0 Allergy status to penicillin; Z88.2 Allergy status to sulfonamides
CPT/HCPCS: 36415; 51701; 70450; 71045; 80053; 81000; 82947; 83605; 84484; 85025; 85379; 85610; 85730; 87040; 87077; 87088; 87186; 93005; 93041

== ENCOUNTER 2023-01-14 11:50 | Inpatient (IN) | payer MEDICAID ==
[~2023-01-14] VITALS: Ht 154 cm; Wt 78.0 kg
[~2023-01-14 11:50] MED LIST changes: +CEFD300C3 PO
--- NOTE | 2023-01-14 12:27 | ED Neurological Problem ---
General Chief Complaint: General Problems/Pain Stated Complaint: SLURRING SPEECH | RT SIDE WEAKNESS Nursing Triage Note: STAFF FROM [facility] WITH PT STATES THAT THE PT MAY HAVE HAD A TIA YESTERDAY, HEART RATE WAS IRREGULAR TODAY AT THE DR'S OFFICE SO DR. SANDOVAL SENT THE PT HERE TO HAVE A CT AND EKG. PT STATES RT JAW, RT HAND, AND BI LAT CHRONIC LEG PAIN. PT IN NOT MOBILE AND IS IN A W/C Source: patient, caregiver Exam Limitations: clinical condition History of Present Illness Date Seen by Provider: Jan 14, 2023 Time Seen by Provider: 11:55 Initial Comments 87-year-old male presents to the ER from [facility] with caregiver. Patient was sent here by his primary care provider who saw him today. His primary care provider is requesting a CT and EKG. Caregiver reports that patient had TIA like symptoms yesterday. States that he was "out for a bit and groggy." Caregiver reports that patient has been acting normal today. She reports that they did lab work today which was normal. She states that he has been complaining of right hand pain for a while. States that he has significant pain with light touch, states that even placement of a sheet over his hand causes pain. He has residual right-sided weakness due to a previous stroke. He is also complaining of intermittent right jaw pain and chronic left knee pain. Caregiver reports that patient has a chronic cough. Denies fevers, chest pain, shortness of air, abdominal pain, nausea, vomiting, diarrhea. Allergies and Home Medications Allergies Coded Allergies: Penicillins (Verified Allergy, Unknown, 12/11/05) sulfamethoxazole (Unverified Allergy, Unknown, 03/23/15) trimethoprim (Unverified Allergy, Unknown, 03/23/15) Patient Home Medication List Home Medication List Reviewed: Yes Aspirin (Aspirin) 81 Mg Tab.chew, 81 MG PO DAILY Prescribed by: GWENDOLYN ROMERO on 03/31/15 0841 Atorvastatin Calcium (Lipitor) 10 Mg Tablet, 10 MG PO HS, (Reported) Entered as Reported by: CLAIRE MARTINEZ on 02/24/14 1258 Cefdinir (Cefdinir) 300 Mg Capsule, 300 MG PO BID Prescribed by: ILDEFONSO MORENO on 11/05/22 1622 Cefdinir (Cefdinir) 300 Mg Capsule, 300 MG PO BID Prescribed by: SALMA HOOD on 11/10/22 0607 Clopidogrel Bisulfate (Clopidogrel) 75 Mg Tablet, 75 MG PO DAILY Prescribed by: GWENDOLYN ROMERO on 03/31/15 0841 Cyanocobalamin (Cyanocobalamin) 1,000 Mcg/Ml Vial, 1,000 MCG IM 1ST OF MONTH, (Reported) Entered as Reported by: CLAIRE MARTINEZ on 02/24/14 1258 Dextran 70/Hypromellose (Artificial Tears) 1 Each Droperette, 1 EACH OP DAILY PRN for DRY EYES Prescribed by: ERNESTO MACIEL on 12/29/16 0835 Docusate Sodium (Colace) 100 Mg Capsule, 100 MG PO BID, (Reported) Entered as Reported by: ARIELLE MYLES on 04/23/12 1059 Famotidine (Acid Bsw (FAMOTIDINE)) 20 Mg Tablet, 20 MG PO BID Prescribed by: ERNESTO MACIEL on 12/29/16 0835 Fenofibric Acid (Choline) (Trilipix) 135 Mg Capsule.dr, 135 MG PO HS, (Reported) Entered as Reported by: OMAR ONEILL on 03/23/15 0453 Finasteride (Proscar) 5 Mg Tab, 5 MG PO DAILY, (Reported) Entered as Reported by: CLAIRE MARTINEZ on 02/24/14 1304 Furosemide (Furosemide) 40 Mg Tablet, 40 MG PO AM & NOON, (Reported) Entered as Reported by: SHIRA NGUYEN on 02/21/10 1451 Hydrocodone Bit/Acetaminophen (Lortab 5 Mg Tablet) 1 Each Tablet, 1 EACH PO DAILY PRN for PAIN-MILD TO MODERATE Prescribed by: ERNESTO MACIEL on 12/29/16 0835 Lisinopril (Lisinopril) 2.5 Mg Tablet, 2.5 MG PO DAILY Prescribed by: GWENDOLYN ROMERO on 03/31/15 0841 Metformin Hcl (Metformin 500 Mg) 500 Mg Tablet, 1,000 MG PO BID, (Reported) Entered as Reported by: CLAIRE MARTINEZ on 02/24/14 1258 Metoprolol Tartrate (Metoprolol Tartrate) 25 Mg Tablet, 25 MG PO HS Prescribed by: ERNESTO MACIEL on 12/29/16 0835 Metoprolol Tartrate (Metoprolol Tartrate) 50 Mg Tablet, 50 MG PO DAILY Prescribed by: ERNESTO MACIEL on 12/29/16 0835 Multivitamin (Multiple Vitamins) 1 Each Tablet, 1 EACH PO DAILY Prescribed by: ERNESTO MACIEL on 12/29/16 0835 Nitroglycerin (Nitrostat) 0.4 Mg Tab.subl, 0.4 MG SL UD PRN for CHEST PAIN, (Reported) Entered as Reported by: TAMI SCHMITT on 03/30/15 1500 [place]-3/Dha/Epa/Fish Oil (Fish Oil 1,000 Mg Softgel) 1,000 Mg Capsule, 1,000 MG PO BID, (Reported) Entered as Reported by: CLAIRE MARTINEZ on 02/24/14 1258 Phenyleph/Pramoxin/Glycr/W.pet (Preparation H Cream) 26 Gm Cream..g., 1 MG RC HS, (Reported) Entered as Reported by: TAMI SCHMITT on 03/30/15 1500 Potassium Chloride (Klor-Con Sprinkle) 10 Meq Capsule.er, 10 MEQ PO BID Prescribed by: ERNESTO MACIEL on 12/29/16 0835 Senna (Senokot Tab) 8.6 Mg Tab, 8.6 MG PO BID, (Reported) Entered as Reported by: CLAIRE MARTINEZ on 02/24/14 1304 Shark Liver Oil/[place] Butter (Hemorrhoidal Suppositories) 1 Each Supp.rect, 1 SUPP.RECT RC Q8H PRN for HEMORRHOIDS, (Reported) Entered as Reported by: TAMI SCHMITT on 03/30/15 1500 Tamsulosin Hcl (Flomax Capsule) 0.4 Mg Cap.er.24h, 0.4 MG PO HS, (Reported) Entered as Reported by: CLAIRE MARTINEZ on 02/24/14 1258 Review of Systems Review of Systems Constitutional: see HPI Past Ggfhawf-Ebsmdf-Scjvst Hx Patient Social History Tobacco Use?: No Substance use?: No Alcohol Use?: No Immunizations Up To Date Tetanus Booster (TDap): Unknown PED Vaccines UTD: No Seasonal Allergies Seasonal Allergies: No Past Medical History Surgery/Hospitalization HX: DM, HX OF STROKE, CP Surgeries: Yes (KNEES, LEGS, FEET AND ABDOMINAL SURGERY) Orthopedic Respiratory: Yes (SHORTNESS OF BREATH AT TIMES, SLEEP APNEA-WEARS C-PAP) Sleep Apnea Currently Using CPAP: Yes Currently Using BIPAP: No Cardiac: Yes Chronic Edema/Swelling, Coronary Artery Disease, Heart Attack, High Cholesterol, Hypertension Neurological: Yes Cerebral Palsy Reproductive Disorders: No Genitourinary: Yes Benign Prostatic Hyperpl, Bladder Infection Gastrointestinal: Yes (COLON RESECTION) Gastroesophageal Reflux, Chronic Constipation, Hemorrhoids Musculoskeletal: Yes (CEREBRAL PALSY, GENERALIZED PAIN ) Contracture Endocrine: Yes Diabetes, Non-Insulin dep HEENT: Yes Loss of Vision: Denies Hearing Impairment: Hard of Hearing Cancer: Yes Colon Did You Recieve Any Treatments: Yes Psychosocial: Yes Sleep Difficulties, Anxiety, Depression Integumentary: No Blood Disorders: No Adverse Reaction/Blood Tranf: No Family Medical History Patient reports no known family medical history. No Pertinent Family Hx Physical Exam Vital Signs Vital Signs - First Documented 01/14/23 11:58 Temp 36.6 Pulse 84 Resp 21 B/P (MAP) 125/85 (98) Pulse Ox 94 O2 Delivery Room Air Capillary Refill : Less Than 3 Seconds Height, Weight, BMI Height: 5'0" Weight: 160lbs. 2.0oz. [id number]; 32.00 BMI Method:Stated General Appearance: WD/WN, no apparent distress Neck: supple, normal inspection Respiratory: lungs clear, no respiratory distress, no accessory muscle use, decreased breath sounds Cardiovascular: regular rate, rhythm Gastrointestinal: normal bowel sounds Extremities: other (Atrophic) Neurologic/Psychiatric: cash posting representative II-XII nml as tested, alert, normal mood/affect, oriented x 3, motor weakness (Right hand adjunct lecturer weaker than left hand adjunct lecturer, could be related to previous stroke or pain in hand. Patient has cerebral palsy, but is able to slightly move bilateral lower extremities.); No sensory deficit Crainal Nerves: PERRL, abnormal speech; No facial asymmetry, No facial droop, No facial paresthesias, No facial weakness, No gaze palsy, No tongue deviation to R, No tongue deviation to L Motor/Sensory: no sensory deficit, weak motor strength RUE, weak motor strength LUE, weak motor strength RLE, weak motor strength LLE Skin: warm/dry Stroke NIH Stroke Scale Assessment Select: Initial Level of Consciousness: 0=Alert (0), Level of Consciousness- Questions: 0=Answers both month/age (0), LOC Commands: 0=Performs both tasks (0), Gaze: Normal (0), Visual Herrera: 0=No visual loss (0), Facial Movement (Facial Paresis): 0=Normal symmetrical mnt (0), Motor Function-Arms Right: 1=Drift (1), Motor Function-Arms Left: 1=Drift (1), Motor Function-Legs Right: 3=No effort/gravity (3), Motor Function-Legs Left: 3=No effort/gravity (3), Limb Ataxia: 0=Absent (0), Sensory: 0=Normal:no loss (0), Best Language: 2=Severe aphasia (2), Dysarthria: 1=Mild to moderate loss (1), Extinction & Inattention: 0=No abnormality (0), Total: 11 Procedures/Interventions Suture Size: 4-0 Progress/Results/Core Measures Results/Orders Lab Results Laboratory Tests Test 01/14/23 12:29 01/14/23 12:33 01/14/23 13:25 Range/Units White Blood Count 10.7 4.3-11.0 10^3/uL Red Blood Count 4.67 4.30-5.52 10^6/uL Hemoglobin 13.8 13.3-17.7 g/dL Hematocrit 44 40-54 % Mean Corpuscular Volume 95 80-99 fL Mean Corpuscular Hemoglobin 30 25-34 pg Mean Corpuscular Hemoglobin Concent 31 L 32-36 g/dL Red Cell Distribution Width 16.0 H 10.0-14.5 % Platelet Count 220 130-400 10^3/uL Mean Platelet Volume 10.1 9.0-12.2 fL Immature Granulocyte % (Auto) 1 % Neutrophils (%) (Auto) 63 42-75 % Lymphocytes (%) (Auto) 20 12-44 % Monocytes (%) (Auto) 11 0-12 % Eosinophils (%) (Auto) 3 0-10 % Basophils (%) (Auto) 1 0-10 % Neutrophils # (Auto) 6.8 1.8-7.8 10^3/uL Lymphocytes # (Auto) 2.2 1.0-4.0 10^3/uL Monocytes # (Auto) 1.2 H 0.0-1.0 10^3/uL Eosinophils # (Auto) 0.3 0.0-0.3 10^3/uL Basophils # (Auto) 0.1 0.0-0.1 10^3/uL Immature Granulocyte # (Auto) 0.1 0.0-0.1 10^3/uL Prothrombin Time 13.5 12.2-14.7 SEC INR Comment 1.0 0.8-1.4 Activated Partial Thromboplast Time 47 H 24-35 SEC D-Dimer 2.32 H 0.00-0.49 UG/ML Sodium Level 142 135-145 MMOL/L Potassium Level 4.1 3.6-5.0 MMOL/L Chloride Level 105 98-107 MMOL/L Carbon Dioxide Level 23 21-32 MMOL/L Anion Gap 14 5-14 MMOL/L Blood Urea Nitrogen 19 H 7-18 MG/DL Creatinine 0.93 0.60-1.30 MG/DL Estimat Glomerular Filtration Rate 79 BUN/Creatinine Ratio 20 Glucose Level 133 H 70-105 MG/DL Uric Acid 8.6 H 2.6-7.2 MG/DL Calcium Level 10.5 H 8.5-10.1 MG/DL Corrected Calcium 10.4 H 8.5-10.1 MG/DL Total Bilirubin 0.5 0.1-1.0 MG/DL Aspartate Amino Transf (AST/SGOT) 21 5-34 U/L Alanine Aminotransferase (ALT/SGPT) 14 0-55 U/L Alkaline Phosphatase 147 H 40-136 U/L Troponin I < 0.028 <0.028 NG/ML Total Protein 8.5 H 6.4-8.2 GM/DL Albumin 4.1 3.2-4.5 GM/DL Glucometer 133 H 70-110 MG/DL Urine Color YELLOW Urine Clarity CLOUDY Urine pH 6.0 5-9 Urine Specific [place] 1.015 L 1.016-1.022 Urine Protein 1+ H NEGATIVE Urine Glucose (UA) NEGATIVE NEGATIVE Urine Ketones NEGATIVE NEGATIVE Urine Nitrite POSITIVE H NEGATIVE Urine Bilirubin NEGATIVE NEGATIVE Urine Urobilinogen 1.0 < = 1.0 MG/DL Urine Leukocyte Esterase 3+ H NEGATIVE Urine RBC (Auto) 3+ H NEGATIVE Urine RBC >100 H /HPF Urine WBC TNTC H /HPF Urine Crystals NONE /LPF Urine Bacteria MODERATE H /HPF Urine Casts NONE /LPF Urine Mucus NEGATIVE /LPF Urine Culture Indicated YES My Orders Orders - LAILA FRYE FIREFIGHTING EQUIPMENT SPECIALIST Cbc With Automated Diff (01/14/23 12:17) Protime With Inr (01/14/23 12:17) Partial Thromboplastin Time (01/14/23 12:17) Comprehensive Metabolic Panel (01/14/23 12:17) Fibrin Degradation Products (01/14/23 12:17) Troponin I Bijan (01/14/23 12:17) Ua Culture If Indicated (01/14/23 12:17) Chest 1 View, Ap/Pa Only (01/14/23 12:17) Ekg Tracing (01/14/23 12:17) Nothing By Mouth (01/14/23 Lunch) Accucheck Stat ONCE (01/14/23 12:17) Ed Iv/Invasive Line Start (01/14/23 12:17) Vital Signs Stroke Patient Q15M (01/14/23 12:17) Ct Head Wo-R/O Stroke (01/14/23 12:17) O2 (01/14/23 12:17) Intake & Output 06,14,22 (01/14/23 12:17) Monitor-Rhythm Ecg Trace Only (01/14/23 12:17) Dysphagia Screening Tool [id number] (01/14/23 12:17) Post Thrombolytic Adminstratio (01/14/23 12:17) Lipid Panel (01/15/23 06:00) Uric Acid (01/14/23 13:12) Ceftriaxone Iv/Im (Rocephin Iv/Im) (01/14/23 13:45) Urine Culture (01/14/23 13:25) Azithromycin Injection (Zithromax Inject (01/14/23 14:15) Ed Admission (Communication) (01/14/23 14:14) Medications Given in ED Current Medications Medications Dose Ordered Sig/Carlos Route Start Time Stop Time Status Last Admin Dose Admin Azithromycin 500 mg/Sodium Chloride 250 ml @ 250 mls/hr ONCE ONCE IV 01/14/23 14:15 01/14/23 15:14 DC 01/14/23 14:38 250 MLS/HR Ceftriaxone Sodium 1000 mg/ Sodium Chloride 50 ml @ 100 mls/hr ONCE ONCE IV 01/14/23 13:45 01/14/23 14:14 DC 01/14/23 14:22 100 MLS/HR Vital Signs/I&O 01/14/23 01/14/23 11:58 14:55 Temp 36.6 36.6 Pulse 84 84 Resp 21 20 B/P (MAP) 125/85 (98) 119/48 Pulse Ox 94 96 O2 Delivery Room Air Room Air Blood Pressure Mean: 98 Progress Progress Note : Progress Note Patient seen and evaluated, resting comfortably in bed, no acute distress. Based on exam and symptoms, stroke work-up initiated including CBC, CMP, coags, D-dimer, troponin, magnesium, UA, chest x-ray, Accu-Chek, CT head stroke, EKG. Patient has weakness of right upper extremity with hand buttonhole facer, and slurred speech, also has expressive aphasia when describing pictures, but is able to have conversation, does not seem to have any difficulty comprehending, and does not have any difficulty finding his words. Patient is able to move upper extremities equally, he has cerebral palsy, movement of his lower extremities is difficult, but he does have some movement. He has no facial droop. The handgrip weakness in his right upper extremity may be due to his previous stroke or pain that he is experiencing in his right hand. Patient's caregiver states that patient is acting like himself today. 1410 Labs and imaging reviewed. CBC grossly normal. CMP shows slightly elevated BUN 19, glucose 133, calcium elevated 10.5. Troponin negative. Coags normal. D-dimer elevated 2.32, this is improved from D-dimer obtained on 11/03/2022. Ur inalysis shows positive nitrates, 3+ leukocytes, 3+ RBCs, too many to count WBCs, moderate bacteria. Chest x-ray shows interval progression of infiltrates in the left midlung field and left lung base and possible small left pleural effusion. Possible infiltrate or atelectasis in right lung base as well. CT shows no evidence of acute intracranial process. Uric acid level was also added on for possible gout, it was slightly elevated 8.6. I discussed results with patient, he is agreeable to admission for pneumonia and UTI. I spoke with patient's daughter, Kristina Anders who is his DPOA. She agrees with plan for admission to treat pneumonia and UTI. When patient was here on 11/05/2022, he presented with similar symptoms of right sided weakness and slurred speech and also was diagnosed with pneumonia and UTI. At that time the patient and daughter did not want him admitted. They are agreeable to admission today. I called and spoke with Dr. Monreal, hospitalist, he agrees to admit patient. We discussed treatment of patient's gout with prednisone, will hold off at this time due to pneumonia and UTI. Dr. Monreal will address the gout tomorrow. Initial ECG Impression Date: Jan 14, 2023 Initial ECG Impression Time: 12:36 Initial ECG Rate: 78 Initial ECG Rhythm: A Fib/Flutter Initial ECG Intervals: Normal Initial ECG Impression: Atrial Fibrillation Initial ECG Comparisson: Unchanged Diagnostic Imaging Diagonstic Imaging: Xray Plain Films/CT/US/NM/MRI: chest Comments [facility], [place], [place] [id number] PT STATUS: REG ER : 1935 PHYSICIAN: LAILA FRYE APRN ADMIT DATE: 01/14/23/ER Draft Date of Exam:01/14/23 CHEST 1 VIEW, AP/PA ONLY CLINICAL INDICATION: Patient had a TIA yesterday. Patient's heart rate is irregular today. Patient has right jaw, right hand, and bilateral chronic leg pain. EXAM: Portable chest x-ray, upright view. COMPARISON: Chest x-ray dated 11/05/2022. FINDINGS: There is interval improved aeration of the right lung with increased lung markings involving the right lung base. There is progression of consolidation involving the left mid lung field and left lung base. There is concern for left pleural effusion. There is no pneumothorax. Pulmonary vasculature is within normal limits. Cardiac silhouette is enlarged, but more obscured. IMPRESSION: 1: There is interval progression of infiltrates involving the left mid lung field and left lung base. There is a possible small left pleural effusion. 2: There is slight improved aeration of the right lung with atelectasis versus infiltrate in the right lung base. Dictated on workstation # [id number] Dict: 01/14/23 1255 Trans: 01/14/23 1301 [id number] Interpreted by: ABDULLAHI RINCON MD Electronically signed by: Diagonstic Imaging: CT Plain Films/CT/US/NM/MRI: head Comments [facility], [place], [place] [facility] REC[facility] [id number] PT STATUS: REG ER : 1935 PHYSICIAN: LAILA FRYE APRN ADMIT DATE: 01/14/23/ER Draft Date of Exam:01/14/23 CT HEAD WO-R/O STROKE CLINICAL INDICATION: Patient states that patient may have had a TIA yesterday. Heart rate was irregular today at doctor office. Patient has right jaw, right hand, and bilateral chronic leg pain. EXAM: Axial CT scan of the brain performed without IV contrast. High-resolution axial CT brain images with sagittal and coronal reformations were also created. Auto Exposure Controls were utilized during the CT exam to meet ALARA standards for radiation dose reduction. COMPARISON: Head CT without contrast dated 11/05/2022. FINDINGS: There is no evidence of acute cerebral infarct, intracranial hemorrhage, or gross mass effect. There is no dense vessel sign. Stable diffuse brain parenchymal volume loss. There is normal castillo-white matter distinction. There is no significant midline shift or herniation. There is no evidence of hydrocephalus. The basal cisterns are unremarkable. Stable small area of scarring involving the right frontal anterior aspect of the head region. Otherwise, the skull, extracranial soft tissue, and orbits are unremarkable. There is mild mucosal thickening involving the ethmoid sinus. Temporal bones show no significant abnormality. IMPRESSION: Stable CT scan of the brain with no interval evidence of an acute intracranial process. There is no dense vessel sign. Results of this report were discussed with Laila Frye APRN, via the telephone on 01/14/2023 at 1253 hours. Dictated on workstation # [id number] Dict: 01/14/23 1247 Trans: 01/14/23 1257 [id number] Interpreted by: ABDULLAHI RINCON MD Electronically signed by: Departure Communication (Admissions) Time/Spoke to Admitting Phy: 13:10 Dr. Monreal, hospitalist. Impression Primary Impression: Pneumonia Qualified Codes: J18.9 - Pneumonia, unspecified organism Additional Impressions: Gout Qualified Codes: M10.9 - Gout, unspecified Weakness of hand Disposition: ADMITTED INPATIENT Condition: Stable Admissions Decision to Admit Reason: Admit from ER (General) Decision to Admit/Date: Jan 14, 2023 Time/Decision to Admit Time: 13:10 Departure-Patient Inst. Referrals: MELANIE SANDOVAL DO (PCP/Family) Primary Care Physician LAILA FRYE APRN Jan 14, 2023 12:27
[2023-01-14 12:38] LABS: BASOPHILS # (AUTO) 0.1 10^3/uL (0.0-0.1); BASOPHILS % (AUTO) 1 % (0-10); EOSINOPHILS # (AUTO) 0.3 10^3/uL (0.0-0.3); EOSINOPHILS % (AUTO) 3 % (0-10); HEMATOCRIT 44 % (40-54); HEMOGLOBIN 13.8 g/dL (13.3-17.7); LYMPHOCYTES # (AUTO) 2.2 10^3/uL (1.0-4.0); LYMPHOCYTES % (AUTO) 20 % (12-44); MEAN CORPUSCULAR HEMOGLOBIN 30 pg (25-34); MEAN CORPUSCULAR HGB CONC 31 g/dL (32-36); MEAN CORPUSCULAR VOLUME 95 fL (80-99); MEAN PLATELET VOLUME 10.1 fL (9.0-12.2); MONOCYTES # (AUTO) 1.2 10^3/uL (0.0-1.0); MONOCYTES % (AUTO) 11 % (0-12); NEUTROPHILS # (AUTO) 6.8 10^3/uL (1.8-7.8); NEUTROPHILS % (AUTO) 63 % (42-75); PLATELET COUNT 220 10^3/uL (130-400); WHITE BLOOD COUNT 10.7 10^3/uL (4.3-11.0)
[2023-01-14 12:46] LABS: ALBUMIN 4.1 GM/DL (3.2-4.5); CHLORIDE 105 MMOL/L (98-107); POTASSIUM 4.1 MMOL/L (3.6-5.0); SODIUM 142 MMOL/L (135-145)
[2023-01-14 12:48] LABS: CALCIUM 10.5 MG/DL (8.5-10.1); PROTHROMBIN TIME PATIENT 13.5 SEC (12.2-14.7)
[2023-01-14 12:49] LABS: GLUCOSE 133 MG/DL (70-105); TOTAL PROTEIN 8.5 GM/DL (6.4-8.2)
[2023-01-14 12:50] LABS: BILIRUBIN,TOTAL 0.5 MG/DL (0.1-1.0); CARBON DIOXIDE 23 MMOL/L (21-32)
[2023-01-14 12:51] LABS: FIBRIN DEGRADATION PRODUCTS 2.32 UG/ML (0.00-0.49)
[2023-01-14 12:52] LABS: ALKALINE PHOSPHATASE 147 U/L (40-136); CREATININE SERUM 0.93 MG/DL (0.60-1.30); GFR ESTIMATED 79
[2023-01-14 12:53] LABS: BUN/CREATININE RATIO 20
[2023-01-14 12:55] LABS: ALANINE AMINOTRANSFERASE 14 U/L (0-55)
--- NOTE | 2023-01-14 12:58 | Diagnostic Imaging Report ---
CLINICAL INDICATION: Patient states that patient may have had a TIA yesterday. Heart rate was irregular today at doctor office. Patient has right jaw, right hand, and bilateral chronic leg pain. EXAM: Axial CT scan of the brain performed without IV contrast. High-resolution axial CT brain images with sagittal and coronal reformations were also created. Auto Exposure Controls were utilized during the CT exam to meet ALARA standards for radiation dose reduction. COMPARISON: Head CT without contrast dated 11/05/2022. FINDINGS: There is no evidence of acute cerebral infarct, intracranial hemorrhage, or gross mass effect. There is no dense vessel sign. Stable diffuse brain parenchymal volume loss. There is normal castillo-white matter distinction. There is no significant midline shift or herniation. There is no evidence of hydrocephalus. The basal cisterns are unremarkable. Stable small area of scarring involving the right frontal anterior aspect of the head region. Otherwise, the skull, extracranial soft tissue, and orbits are unremarkable. There is mild mucosal thickening involving the ethmoid sinus. Temporal bones show no significant abnormality. IMPRESSION: Stable CT scan of the brain with no interval evidence of an acute intracranial process. There is no dense vessel sign. Results of this report were discussed with Laila Worley APRN, via the telephone on 01/14/2023 at 1253 hours. Dictated by: Dictated on workstation # [id number]
--- NOTE | 2023-01-14 13:01 | Diagnostic Imaging Report ---
CLINICAL INDICATION: Patient had a TIA yesterday. Patient's heart rate is irregular today. Patient has right jaw, right hand, and bilateral chronic leg pain. EXAM: Portable chest x-ray, upright view. COMPARISON: Chest x-ray dated 11/05/2022. FINDINGS: There is interval improved aeration of the right lung with increased lung markings involving the right lung base. There is progression of consolidation involving the left mid lung field and left lung base. There is concern for left pleural effusion. There is no pneumothorax. Pulmonary vasculature is within normal limits. Cardiac silhouette is enlarged, but more obscured. IMPRESSION: 1: There is interval progression of infiltrates involving the left mid lung field and left lung base. There is a possible small left pleural effusion. 2: There is slight improved aeration of the right lung with atelectasis versus infiltrate in the right lung base. Dictated by: Dictated on workstation # [id number]
[2023-01-14] MEDS ORDERED: cefTRIAXone IV/IM 1,000 MG in NS (IVPB) 50 ML IV ONE (13:45)
[2023-01-14 13:59] LABS: BILIRUBIN,URINE NEGATIVE (NEGATIVE); CLARITY,URINE CLOUDY; COLOR,URINE YELLOW; GLUCOSE, URINE (UA) NEGATIVE (NEGATIVE); KETONES,URINE NEGATIVE (NEGATIVE); LEUKOCYTE ESTERASE ,URINE 3+ (NEGATIVE); NITRITE,URINE POSITIVE (NEGATIVE); PROTEIN,URINE 1+ (NEGATIVE)
[2023-01-14 14:02] LABS: BACTERIA,URINE MODERATE /HPF; RBC,URINE >100 /HPF; WBC,URINE TNTC /HPF
[2023-01-14] MEDS ORDERED: AZITHROMYCIN INJECTION 500 MG in NS (IVPB) 250 ML IV ONE (14:15)
[2023-01-14 16:09] VITALS: BP 116/78
[2023-01-14] MEDS ORDERED: ONDANSETRON 4 MG/2 ML (SDV) Z0FRAN IV PRN (16:45)
[2023-01-14] MEDS ORDERED: CALCIUM CARBONATE 500 MG (TUMS) TAB.CHEW PO PRN (16:45)
[2023-01-14] MEDS ORDERED: NS IV 500 ML 500 ML IV PRN (16:45)
[2023-01-14] MEDS ORDERED: BISACODYL 10 MG SUPP (DULCOLAX) PR PRN (16:45)
[2023-01-14] MEDS ORDERED: ACETAMINOPHEN 325 MG TABLET PO PRN (16:45)
[2023-01-14] MEDS ORDERED: MILK OF MAGNESIA 400 MG/5 ML 30 ML UDC PO PRN (16:45)
[2023-01-14] MEDS ORDERED: polyethylene glycoL POWDER 17 GM (MIRALAX) PACK PO PRN (16:45)
[2023-01-14] MEDS ORDERED: ANTACID SUSP 30 ML UDC (MYLANTA) PO PRN (16:45)
[2023-01-14] MEDS ORDERED: ONDANSETRON 4 MG (ZOFRAN) ORAL DISSOLVE TAB PO PRN (16:45)
[2023-01-14] MEDS ORDERED: LACTULOSE SYRUP 10GM/15ML (ENULOSE) 30ML UDC PO PRN (16:45)
[2023-01-14] MEDS ORDERED: MELATONIN 3 MG TABLET PO PRN (16:45)
[2023-01-14 16:58] VITALS: BP 125/85
[2023-01-14] MEDS: RT-ALBUTEROL/IPRATROPIUM 3 ML (DUONEB) VIAL INH SCH ×2 (18:42→21:50)
[2023-01-14] MEDS: ENOXAPARIN 40 MG/0.4 ML (LOVENOX) SYR SC SCH (18:53)
[2023-01-14 19:53] VITALS: BP 120/69
[2023-01-14] MEDS ORDERED: RT-ALBUTEROL/IPRATROPIUM 3 ML (DUONEB) VIAL INH PRN (20:00)
[2023-01-14] MEDS: DOCUSATE SODIUM 100 MG (COLACE) CAP PO SCH (21:04)
[2023-01-14] MEDS: SENNOSIDES 8.6 MG (SENOKOT) TAB PO SCH (21:04)
[2023-01-14 23:26] VITALS: BP 137/83
[2023-01-15] MEDS: RT-ALBUTEROL/IPRATROPIUM 3 ML (DUONEB) VIAL INH SCH ×6 (02:24→22:30)
[2023-01-15 03:14] VITALS: BP 126/83
[2023-01-15 05:48] LABS: BASOPHILS # (AUTO) 0.1 10^3/uL (0.0-0.1); BASOPHILS % (AUTO) 1 % (0-10); EOSINOPHILS # (AUTO) 0.2 10^3/uL (0.0-0.3); EOSINOPHILS % (AUTO) 2 % (0-10); HEMATOCRIT 39 % (40-54); HEMOGLOBIN 12.5 g/dL (13.3-17.7); LYMPHOCYTES # (AUTO) 1.6 10^3/uL (1.0-4.0); LYMPHOCYTES % (AUTO) 15 % (12-44); MEAN CORPUSCULAR HEMOGLOBIN 30 pg (25-34); MEAN CORPUSCULAR HGB CONC 32 g/dL (32-36); MEAN CORPUSCULAR VOLUME 93 fL (80-99); MEAN PLATELET VOLUME 10.2 fL (9.0-12.2); MONOCYTES # (AUTO) 1.3 10^3/uL (0.0-1.0); MONOCYTES % (AUTO) 12 % (0-12); NEUTROPHILS # (AUTO) 7.4 10^3/uL (1.8-7.8); NEUTROPHILS % (AUTO) 70 % (42-75); PLATELET COUNT 201 10^3/uL (130-400); WHITE BLOOD COUNT 10.6 10^3/uL (4.3-11.0)
[2023-01-15 06:00] LABS: POTASSIUM 3.8 MMOL/L (3.6-5.0)
[2023-01-15 06:06] LABS: CREATININE SERUM 0.85 MG/DL (0.60-1.30)
[2023-01-15] MEDS: MAGNESIUM 1 GM/100 ML IVPB 100 ML IV SCH (06:09)
[2023-01-15] MEDS: POTASSIUM CL 10MEQ/50ML IVPB 50 ML IV SCH (06:09)
[2023-01-15] MEDS: KCL 20 MEQ TAB (K-DUR) PO SCH (06:10)
[2023-01-15 07:39] VITALS: BP 129/80
[2023-01-15] MEDS ORDERED: KCL 20 MEQ TAB (K-DUR) PO ONE (09:00)
[2023-01-15] MEDS ORDERED: CLOP75TA28 PO (09:01)
[2023-01-15] MEDS ORDERED: ACHD5005 PO (09:01)
[2023-01-15] MEDS ORDERED: GUAI600T43 PO (09:01)
[2023-01-15] MEDS ORDERED: ASPI-1238 PO (09:01)
[2023-01-15] MEDS ORDERED: METO-333 PO (09:01)
[2023-01-15] MEDS ORDERED: MULT-1136 PO (09:01)
[2023-01-15] MEDS ORDERED: HYPR15DR23 OU (09:01)
[2023-01-15] MEDS ORDERED: OMEG100032 PO (09:01)
[2023-01-15] MEDS ORDERED: FAMO20TA5 PO (09:01)
[2023-01-15] MEDS ORDERED: SENN-234 PO (09:01)
[2023-01-15] MEDS ORDERED: NITR0.4T39 SL (09:01)
[2023-01-15] MEDS ORDERED: ACET-2267 PO (09:01)
[2023-01-15] MEDS ORDERED: FINA5TAB6 PO (09:01)
[2023-01-15] MEDS ORDERED: POLY17PO6 PO ×2 (09:01)
[2023-01-15] MEDS ORDERED: CNC1KV IM (09:01)
[2023-01-15] MEDS ORDERED: ATOR10TA66 PO (09:01)
[2023-01-15] MEDS ORDERED: DOCU100C37 PO (09:01)
[2023-01-15] MEDS ORDERED: TMSL.4C PO (09:01)
[2023-01-15] MEDS ORDERED: BISA5TAB20 PO (09:01)
[2023-01-15] MEDS: DOCUSATE SODIUM 100 MG (COLACE) CAP PO SCH ×2 (09:57→19:28)
[2023-01-15] MEDS: AZITHROMYCIN 250 MG TAB (ZITHROMAX) PO SCH (09:58)
[2023-01-15] MEDS: SENNOSIDES 8.6 MG (SENOKOT) TAB PO SCH ×2 (09:58→19:28)
[2023-01-15 11:36] VITALS: BP 137/63
--- NOTE | 2023-01-15 13:05 | History & Physical-Hospitalist ---
History of Present Illness HPI/Chief Complaint Junior Alston is an 87 year old male with PMH HTN, T2DM, HLD, CAD, PAD, GERD, BPH, history of colon cancer, cerebral palsy, history of stroke with residual right sided weakness, who presented with confusion. He lives at [facility]. He was seen at his PCP yesterday and referred to the ER. The previous day he was reportedly groggy and not acting like himself. Yesterday he returned to his baseline. He denies any complaints on my exam. He wants to go back home. He denies fevers and chills. He denies chest pain. He denies shortness of breath. He has had a cough. He denies nausea, vomiting, diarrhea, and abdominal pain. He denies urinary symptoms. He says he has been eating and drinking with assistance. Source: patient, RN/MD Exam Limitations: no limitations Date Seen 01/15/23 Time Seen by a Provider: 10:30 Attending Physician Casimiro Manriquez DO PCP Admitting Physician: Adwoa Dacosta MD Attending Physician: Adwoa Dacosta MD Referring Physician Date of Admission Jan 14, 2023 at 14:57 Home Medications & Allergies Home Medications Reviewed patient Home Medication Reconciliation performed by pharmacy medication reconciliations medication reconciliation technician and/or nursing. Patients Allergies have been reviewed. Allergies Allergies Coded Allergies Penicillins (Verified Allergy, Unknown, 12/11/05) sulfamethoxazole (Unverified Allergy, Unknown, 03/23/15) trimethoprim (Unverified Allergy, Unknown, 03/23/15) Past Kewiigs-Pymovm-Pyujjs Hx Patient Social History Tobacco Use?: No Use of E-Cig and/or Vaping dev: No Substance use?: No Alcohol Use?: No Pt feels they are or have been: No Immunizations Up To Date Tetanus Booster (TDap): Unknown PED Vaccines UTD: No Date of Pneumonia Vaccine: Sep 29, 2014 Seasonal Allergies Seasonal Allergies: No Current Status Communicates: Verbally Primary Language: Liberian Preferred Spoken Language: Liberian Is interpretation needed?: No Sensory deficits: Vision impairment, Hearing impairment, Speech impairment Past Medical History Surgeries: Orthopedic Sleep Apnea Currently Using CPAP: Yes Currently Using BIPAP: No Chronic Edema/Swelling, Coronary Artery Disease, Heart Attack, High Cholesterol, Hypertension Cerebral Palsy Benign Prostatic Hyperpl, Bladder Infection Gastroesophageal Reflux, Chronic Constipation, Hemorrhoids Contracture Diabetes, Non-Insulin dep Loss of Vision: Denies Hearing Impairment: Hard of Hearing Colon Did You Recieve Any Treatments: Yes Sleep Difficulties, Anxiety, Depression Blood Disorders: No Adverse Reaction/Blood Tranf: No Family Medical History Patient reports no known family medical history. No Pertinent Family Hx Review of Systems Constitutional: no symptoms reported Respiratory: cough Cardiovascular: no symptoms reported Gastrointestinal: no symptoms reported Physical Exam Physical Exam Vital Signs Vital Signs - First Documented 01/14/23 01/14/23 01/14/23 11:58 16:58 18:42 Temp 36.6 Pulse 84 Resp 21 B/P (MAP) 125/85 (98) Pulse Ox 94 O2 Delivery Room Air O2 Flow Rate 0.00 FiO2 21 Capillary Refill : Less Than 3 Seconds Height, Weight, BMI Height: 5'0" Weight: 160lbs. 2.0oz. 72.769273ny; 32.88 BMI Method:Stated General Appearance: No Apparent Distress, Chronically ill Neck: Normal Inspection, Supple Respiratory: No Respiratory Distress, Decreased Breath Sounds Cardiovascular: Regular Rate, Rhythm, No Edema, No Murmur Gastrointestinal: Normal Bowel Sounds, Non Tender, Soft Extremity: Normal Inspection, Non Tender, No Pedal Edema Neurologic/Psychiatric: Alert, Normal Mood/Affect, Motor Weakness Skin: Normal Color, Warm/Dry Results Results/Procedures Labs Laboratory Tests 01/14/23 12:29 01/15/23 05:25 01/15/23 05:28 Patient resulted labs reviewed. Imaging: Reviewed Imaging Report Assessment/Plan Admission Diagnosis UTI Admission Status: Inpatient Order (span 2 midnights) Reason for Inpatient Admission: Pneumonia Assessment and Plan Urinary tract infection History of MDRO Pneumonia UA consistent with UTI Chest xray concerning for possible pneumonia Started on Rocephin and Azithromycin Await culture results HTN T2DM HLD CAD PAD GERD BPH Continue home meds as able once med rec completed Diagnosis/Problems Diagnosis/Problems (1) UTI (urinary tract infection) Status: Acute (2) PNA (pneumonia) Status: Acute ADWOA DACOSTA MD Jan 15, 2023 13:05
[2023-01-15] MEDS ORDERED: HYDROcodone/APAP 5 MG/325 MG (LORTAB) TAB PO PRN (13:15)
[2023-01-15] MEDS: cefTRIAXone IV/IM 1,000 MG in NS (IVPB) 50 ML IV SCH (13:51)
[2023-01-15 15:45] VITALS: BP 131/81
[2023-01-15] MEDS: ENOXAPARIN 40 MG/0.4 ML (LOVENOX) SYR SC SCH (17:41)
[2023-01-15] MEDS ORDERED: TAMSULOSIN 0.4 MG (FLOMAX) CAP PO SCH (18:00)
[2023-01-15] MEDS ORDERED: AtorvaSTATin TABLET 10 MG TABLET PO SCH (18:00)
[2023-01-15 19:42] VITALS: BP 114/56
[2023-01-15] MEDS: meTOprolol TARTRATE 25 MG (LOPRESSOR) TABLET PO SCH (20:01)
[2023-01-15] MEDS: ARTIFICAL TEARS 0.4 ML UNIT DOSE (REFRESH PLUS) OU SCH (20:01)
[2023-01-15] MEDS ORDERED: HYPROMELLOSE OU SCH (21:00)
[2023-01-15 23:07] VITALS: BP 104/58
[2023-01-16] MEDS: RT-ALBUTEROL/IPRATROPIUM 3 ML (DUONEB) VIAL INH SCH ×3 (02:49→10:24)
[2023-01-16 03:05] VITALS: BP 115/58
[2023-01-16 05:12] LABS: BASOPHILS # (AUTO) 0.1 10^3/uL (0.0-0.1); BASOPHILS % (AUTO) 1 % (0-10); EOSINOPHILS # (AUTO) 0.5 10^3/uL (0.0-0.3); EOSINOPHILS % (AUTO) 5 % (0-10); HEMATOCRIT 38 % (40-54); LYMPHOCYTES % (AUTO) 20 % (12-44); MEAN CORPUSCULAR HEMOGLOBIN 30 pg (25-34); MEAN CORPUSCULAR HGB CONC 31 g/dL (32-36); MEAN CORPUSCULAR VOLUME 94 fL (80-99); MEAN PLATELET VOLUME 10.1 fL (9.0-12.2); MONOCYTES # (AUTO) 1.1 10^3/uL (0.0-1.0); MONOCYTES % (AUTO) 11 % (0-12); NEUTROPHILS # (AUTO) 6.3 10^3/uL (1.8-7.8); NEUTROPHILS % (AUTO) 62 % (42-75); PLATELET COUNT 192 10^3/uL (130-400); WHITE BLOOD COUNT 10.1 10^3/uL (4.3-11.0)
[2023-01-16 05:19] LABS: POTASSIUM 3.9 MMOL/L (3.6-5.0)
[2023-01-16 05:20] LABS: CALCIUM 9.6 MG/DL (8.5-10.1)
[2023-01-16 05:24] LABS: CREATININE SERUM 0.89 MG/DL (0.60-1.30)
[2023-01-16] MEDS: POTASSIUM CL 10MEQ/50ML IVPB 50 ML IV SCH (05:24)
[2023-01-16] MEDS: KCL 20 MEQ TAB (K-DUR) PO SCH (05:24)
[2023-01-16] MEDS: MAGNESIUM 1 GM/100 ML IVPB 100 ML IV SCH (05:27)
[2023-01-16 08:27] VITALS: BP 127/60
[2023-01-16] MEDS ORDERED: FINASTERIDE (PROSCAR) 5 MG TAB PO SCH (09:00)
[2023-01-16] MEDS ORDERED: CLOPIDOGREL 75 MG (PLAVIX) TABLET PO SCH (09:00)
[2023-01-16] MEDS ORDERED: ASPIRIN E.C. 81 MG (ECOTRIN) TAB PO SCH (09:00)
[2023-01-16] MEDS ORDERED: FAMOTIDINE 20 MG (PEPCID) TABLET PO SCH (09:00)
[2023-01-16] MEDS ORDERED: KCL 20 MEQ TAB (K-DUR) PO ONE (09:00)
[2023-01-16] MEDS: DOCUSATE SODIUM 100 MG (COLACE) CAP PO SCH (09:51)
[2023-01-16] MEDS: AZITHROMYCIN 250 MG TAB (ZITHROMAX) PO SCH (09:51)
[2023-01-16] MEDS: ARTIFICAL TEARS 0.4 ML UNIT DOSE (REFRESH PLUS) OU SCH (09:52)
[2023-01-16] MEDS: meTOprolol TARTRATE 25 MG (LOPRESSOR) TABLET PO SCH ×2 (09:52→13:28)
[2023-01-16] MEDS: SENNOSIDES 8.6 MG (SENOKOT) TAB PO SCH (09:52)
[2023-01-16] MEDS ORDERED: FOSFOMYCIN 3 GM PACK (MONUROL) PO NR (11:00)
[2023-01-16 11:40] VITALS: BP 102/55
[2023-01-16] MEDS: cefTRIAXone IV/IM 1,000 MG in NS (IVPB) 50 ML IV SCH (13:38)
== END 2023-01-16 14:29 | DRG 194 ==
LOC: EDUNIT# 11:50 → ER 11:52 → 4TH 14:57
PROVIDERS: ADMIT Internal Medicine; ATTEND Internal Medicine
DX: J18.9 Pneumonia, unspecified organism (principal); I69.351 Hemiplegia and hemiparesis following cerebral infarction affecting right dominant side; N39.0 Urinary tract infection, site not specified; R47.01 Aphasia; M10.9 Gout, unspecified; G80.9 Cerebral palsy, unspecified; M79.641 Pain in right hand; R29.711 NIHSS score 11; Z66 Do not resuscitate; R47.81 Slurred speech; I25.10 Atherosclerotic heart disease of native coronary artery without angina pectoris; E11.9 Type 2 diabetes mellitus without complications; G47.30 Sleep apnea, unspecified; E78.00 Pure hypercholesterolemia, unspecified; I10 Essential (primary) hypertension; N40.0 Benign prostatic hyperplasia without lower urinary tract symptoms; K21.9 Gastro-esophageal reflux disease without esophagitis; H91.90 Unspecified hearing loss, unspecified ear; H54.7 Unspecified visual loss; I73.9 Peripheral vascular disease, unspecified; I25.2 Old myocardial infarction; Z85.038 Personal history of other malignant neoplasm of large intestine; Z79.82 Long term (current) use of aspirin; Z79.899 Other long term (current) drug therapy; Z79.891 Long term (current) use of opiate analgesic; Z79.84 Long term (current) use of oral hypoglycemic drugs; Z88.0 Allergy status to penicillin; Z88.2 Allergy status to sulfonamides; Z88.8 Allergy status to other drugs, medicaments and biological substances
CPT/HCPCS: 36415; 51701; 70450; 71045; 80048; 80053; 80061; 81000; 82947; 83735; 84484; 84550; 85025; 85379; 85610; 85730; 87077; 87088; 87186; 93005; 93041; 94640; 94760